=== PATIENT | female | born 1935 | race Caucasian/White ===

== ENCOUNTER 2016-02-27 15:48 | Observation (INO) | payer MEDICARE ==
[2016-02-27] MEDS ORDERED: RX INFO: IV CONTRAST WAS GIVEN 1 EACH MISC MISCELLANE PRN (16:13)
[2016-02-27] MEDS ORDERED: ACETAMINOPHEN IV (For NPO) 1,000 MG in SALINE 1 100ML.BAG IVPB STA (16:14)
[2016-02-27] MEDS ORDERED: SODIUM CHLORIDE 0.9% 1,000 ML IV STA (16:14)
[2016-02-27] MEDS ORDERED: SODIUM CHLORIDE 0.9% 500 ML IV STA (16:14)
[2016-02-27] MEDS ORDERED: LORazepam 2 MG/ML SYRINGE IV STA ×2 (16:14→18:36)
--- NOTE | 2016-02-27 16:25 | ED ---
General Adult HPI - General Chief complaint: Recheck/Abnormal Lab/Rx Stated complaint: SOB Time Seen by Provider: 02/27/16 15:58 Source: patient, family, RN notes reviewed Mode of arrival: EMS Limitations: no limitations - History of Present Illness Initial comments: Patient is a pleasant 81-year-old female presenting to the emergency department with complaints of rib discomfort and anxiety. Patient had a fall a week ago. Patient did fracture her jaw. Patient has been having rib discomfort since that time. Patient states she gets rib discomfort and anxious and short of breath intermittently since that time. Patient states right now her symptoms are not that bad. Patient did go to her primary care physician's office prior to arrival and found to be in SVT. Patient sent to emergency department. Patient reportedly did have computed tomography scan of her chest and abdomen done 1 week ago. - Related Data Home Medications Medication Instructions Recorded Confirmed Aspirin EC [Ecotrin] 81 mg PO HS 04/07/15 02/27/16 Metoprolol Succinate [Toprol XL] 50 mg PO DAILY 04/07/15 02/27/16 Sertraline [Zoloft] 100 mg PO HS 04/07/15 02/27/16 Zolpidem Tartrate [Ambien Cr] 12.5 mg PO HS 04/07/15 02/27/16 Lactobacillus Acidophilus 1 tab PO BID 11/03/15 02/27/16 [Acidophilus] Calcium Carbonate [Calcium] 600 mg PO BID 02/21/16 02/27/16 Levothyroxine Sodium [Synthroid] 125 mcg PO DAILY 02/21/16 02/27/16 Losartan [Cozaar] 50 mg PO BID 02/21/16 02/27/16 HYDROcodone/APAP 7.5-325MG [[place] 0.5 tab PO Q4H PRN 02/27/16 02/27/16 7.5-325] Penicillin V Potassium [Pen Vee K] 500 mg PO QID 02/27/16 02/27/16 Previous Rx's Medication Instructions Recorded ALPRAZolam [Xanax] 0.5 mg PO Q6H PRN #6 tablet 02/22/16 Allergies Allergy/AdvReac Type Severity Reaction Status Date / Time ceftriaxone sodium Allergy Itching Verified 02/27/16 16:16 [From Rocephin] hydromorphone HCl Allergy Dyspnea Verified 02/27/16 16:16 [From Dilaudid] latex Allergy RASH AND Verified 02/27/16 16:16 SWELLING levofloxacin [From Levaquin] Allergy red Verified 02/27/16 15:56 streaks in iv vein morphine Allergy Dyspnea Verified 02/27/16 16:16 codeine AdvReac Rapid Verified 02/27/16 16:16 Heart Rate Review of Systems ROS Statement: Those systems with pertinent positive or pertinent negative responses have been documented in the HPI. ROS Other: All systems not noted in ROS Statement are negative. Constitutional: Denies: fever Eyes: Denies: eye pain ENT: Denies: ear pain Respiratory: Reports: dyspnea Cardiovascular: Reports: chest pain Endocrine: Reports: fatigue Gastrointestinal: Reports: abdominal pain Genitourinary: Denies: dysuria Musculoskeletal: Denies: back pain Skin: Denies: rash Neurological: Denies: weakness Past Medical History Past Medical History: Cancer, Deep Vein Thrombosis (DVT), Hypertension, Osteoarthritis (OA), Thyroid Disorder Additional Past Medical History / Comment(s): colon cancer-1991 with chemotherapy, dvt lt leg 2012, VARICOSE VEINS, cervical spondylosis with myelopathy, osteoporosis, rosacea History of Any Multi-Drug Resistant Organisms: MRSA Date of last positivie culture/infection: 2011 MDRO Source:: TOE Past Surgical History: Bowel Resection, Cholecystectomy, Hysterectomy Additional Past Surgical History / Comment(s): rt rotator cuff repair 2 04/2014 , colonoscopy, pain clinic procedures, multiple colon resections including colostomy reversal Past Anesthesia/Blood Transfusion Reactions: No Reported Reaction Past Psychological History: No Psychological Hx Reported Smoking Status: Never smoker Past Alcohol Use History: Rare Past Drug Use History: None Reported - Past Family History Brother(s) Son(s) Family Medical History: Deep Vein Thrombosis (DVT) Additional Family Medical History / Comment(s): Patient has 4 sons and one has history of DVTs Daughter(s) Additional Family Medical History / Comment(s): Patient has one daughter that has Crohn's Sister(s) Family Medical History: Cancer Additional Family Medical History / Comment(s): She has 2 sisters and one has had breast cancer with metastatic disease and the second sister with with liver cancer. Father Family Medical History: Cancer Additional Family Medical History / Comment(s): Father at age 90 from inoperable bowel cancer Mother Family Medical History: Cancer Additional Family Medical History / Comment(s): Mother at age 81 from stomach cancer General Exam Limitations: no limitations General appearance: alert, in no apparent distress Head exam: Present: other (Chin abrasions, mandible tenderness) Eye exam: Present: normal appearance ENT exam: Present: normal oropharynx Neck exam: Present: normal inspection Respiratory exam: Present: normal lung sounds bilaterally, chest wall tenderness (Left posterior) Cardiovascular Exam: Present: tachycardia GI/Abdominal exam: Present: soft, tenderness (Right upper quadrant) Extremities exam: Present: normal inspection Back exam: Present: tenderness (Left posterior ribs) Neurological exam: Present: alert Psychiatric exam: Present: normal affect, normal mood Skin exam: Absent: rash Course Vital Signs 02/27/16 02/27/16 02/27/16 15:50 16:02 18:12 Temperature 97.8 F 98.4 F Pulse Rate 119 H 86 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 [place] 168. QRS 78. QT 332. QTC 479. Normal axis. Normal QRS. Normal ST-T. Medical Decision Making - Medical Decision Making Patient reexamined and resting comfortably in bed. Patient is complaining of left upper back/shoulder discomfort. There is mild tenderness to palpation in this region. This area was covered in computed tomography scan. Heart rate has improved to 80. Case was discussed in detail with Dr. Beltran, who will admit his patient with cardiology consult. - Lab Data Result diagrams: 02/27/16 16:25 02/27/16 16:25 Lab Results 02/27/16 02/27/16 02/27/16 Range/Units 16:25 16:25 16:25 WBC 4.7 (3.8-10.6) k/uL RBC 4.17 (3.80-5.40) m/uL Hgb 12.5 (11.4-16.0) gm/dL Hct 38.1 (34.0-46.0) % MCV 91.3 (80.0-100.0) fL MCH 30.0 (25.0-35.0) pg MCHC 32.9 (31.0-37.0) g/dL RDW 14.1 (11.5-15.5) % Plt Count 207 (150-450) k/uL Neutrophils % 67 % Lymphocytes % 16 % Monocytes % 11 % Eosinophils % 0 % Basophils % 1 % Neutrophils # 3.1 (1.3-7.7) k/uL Lymphocytes # 0.7 L (1.0-4.8) k/uL Monocytes # 0.5 (0-1.0) k/uL Eosinophils # 0.0 (0-0.7) k/uL Basophils # 0.1 (0-0.2) k/uL PT (9.0-12.0) sec INR (<1.1) APTT (22.0-30.0) sec Sodium 140 (137-145) mmol/L Potassium 4.6 (3.5-5.1) mmol/L Chloride 100 (98-107) mmol/L Carbon Dioxide 27 (22-30) mmol/L Anion Gap 13 mmol/L BUN 22 H (7-17) mg/dL Creatinine 0.80 (0.52-1.04) mg/dL Est GFR (MDRD) Af Amer >60 (>60 ml/min/1.73 sqM) Est GFR (MDRD) Non-Af >60 (>60 ml/min/1.73 sqM) Glucose 94 (74-99) mg/dL Calcium 9.6 (8.4-10.2) mg/dL Magnesium 2.1 (1.6-2.3) mg/dL Total Bilirubin 0.7 (0.2-1.3) mg/dL AST 40 H (14-36) U/L ALT 80 H (9-52) U/L Alkaline Phosphatase 113 (38-126) U/L Total Creatine Kinase 21 L (30-135) U/L CK-MB (CK-2) <0.2 (0.0-2.4) ng/mL CK-MB (CK-2) Rel Index Troponin I <0.012 (0.000-0.034) ng/mL Total Protein 6.6 (6.3-8.2) g/dL Albumin 4.0 (3.5-5.0) g/dL TSH 0.451 L (0.465-4.680) mIU/L Free T4 1.35 (0.78-2.19) ng/dL Free T3 pg/mL 2.6 L (2.8-5.3) pg/ml Urine Color Urine Appearance (Clear) Urine pH (5.0-8.0) Ur Specific [place] (1.001-1.035) Urine Protein (Negative) Urine Glucose (UA) (Negative) Urine Ketones (Negative) Urine Blood (Negative) Urine Nitrate (Negative) Urine Bilirubin (Negative) Urine Urobilinogen (<2.0) mg/dL Ur Leukocyte Esterase (Negative) 02/27/16 02/27/16 Range/Units 16:25 18:10 WBC (3.8-10.6) k/uL RBC (3.80-5.40) m/uL Hgb (11.4-16.0) gm/dL Hct (34.0-46.0) % MCV (80.0-100.0) fL MCH (25.0-35.0) pg MCHC (31.0-37.0) g/dL RDW (11.5-15.5) % Plt Count (150-450) k/uL Neutrophils % % Lymphocytes % % Monocytes % % Eosinophils % % Basophils % % Neutrophils # (1.3-7.7) k/uL Lymphocytes # (1.0-4.8) k/uL Monocytes # (0-1.0) k/uL Eosinophils # (0-0.7) k/uL Basophils # (0-0.2) k/uL PT 9.6 (9.0-12.0) sec INR 0.9 (<1.1) APTT 21.7 L (22.0-30.0) sec Sodium (137-145) mmol/L Potassium (3.5-5.1) mmol/L Chloride (98-107) mmol/L Carbon Dioxide (22-30) mmol/L Anion Gap mmol/L BUN (7-17) mg/dL Creatinine (0.52-1.04) mg/dL Est GFR (MDRD) Af Amer (>60 ml/min/1.73 sqM) Est GFR (MDRD) Non-Af (>60 ml/min/1.73 sqM) Glucose (74-99) mg/dL Calcium (8.4-10.2) mg/dL Magnesium (1.6-2.3) mg/dL Total Bilirubin (0.2-1.3) mg/dL AST (14-36) U/L ALT (9-52) U/L Alkaline Phosphatase (38-126) U/L Total Creatine Kinase (30-135) U/L CK-MB (CK-2) (0.0-2.4) ng/mL CK-MB (CK-2) Rel Index Troponin I (0.000-0.034) ng/mL Total Protein (6.3-8.2) g/dL Albumin (3.5-5.0) g/dL TSH (0.465-4.680) mIU/L Free T4 (0.78-2.19) ng/dL Free T3 pg/mL (2.8-5.3) pg/ml Urine Color Light Yellow Urine Appearance Clear (Clear) Urine pH 7.5 (5.0-8.0) Ur Specific [place] 1.023 (1.001-1.035) Urine Protein Negative (Negative) Urine Glucose (UA) Negative (Negative) Urine Ketones Negative (Negative) Urine Blood Negative (Negative) Urine Nitrate Negative (Negative) Urine Bilirubin Negative (Negative) Urine Urobilinogen <2.0 (<2.0) mg/dL Ur Leukocyte Esterase Negative (Negative) - Radiology Data Radiology results: report reviewed (CT and your of the chest shows no significant interval change. Negative for pulmonary embolism. Computed tomography scan of the abdomen and pelvis shows no significant interval change. Correlate for fecal stasis.), image reviewed (Chest x-ray shows suspected chronic pleural reaction.) Disposition Clinical Impression: SVT (supraventricular tachycardia) Disposition: ADMITTED IP TO THIS HOSP
[2016-02-27 16:37] LABS: Basophils # (A) 0.1 k/uL (0-0.2); Basophils % (A) 1 %; CH 31.6; CHCM 34.8; Eosinophils % (A) 0 %; HCT 38.1 % (34.0-46.0); HDW 2.83; HGB 12.5 gm/dL (11.4-16.0); Luc # (Auto) 0.21; Luc % (Auto) 5; Lymphocytes # (A) 0.7 k/uL (1.0-4.8); Lymphocytes % (A) 16 %; MCHC 32.9 g/dL (31.0-37.0); MCV 91.3 fL (80.0-100.0); Mean Platelet Volume 7.9; Monocytes # (A) 0.5 k/uL (0-1.0); Monocytes % (A) 11 %; Neutrophils # (A) 3.1 k/uL (1.3-7.7); Neutrophils % (A) 67 %; RBC 4.17 m/uL (3.80-5.40); RDW 14.1 % (11.5-15.5); WBC 4.7 k/uL (3.8-10.6); WBC (Perox) 4.78
[2016-02-27 16:52] LABS: INR 0.9 (<1.1); Partial Thromboplastin Time 21.7 sec (22.0-30.0); Prothrombin Time 9.6 sec (9.0-12.0)
[2016-02-27 17:04] LABS: Creatine Kinase 21 U/L (30-135)
[2016-02-27 17:13] LABS: ALT 80 U/L (9-52); AST 40 U/L (14-36); Alkaline Phosphatase 113 U/L (38-126); Anion Gap 13 mmol/L; Blood Urea Nitrogen 22 mg/dL (7-17); Calcium 9.6 mg/dL (8.4-10.2); Carbon Dioxide 27 mmol/L (22-30); Chloride 100 mmol/L (98-107); Glucose 94 mg/dL (74-99); Magnesium 2.1 mg/dL (1.6-2.3); Non-African American GFR(MDRD) >60 (>60 ml/min/1.73 sqM); Potassium 4.6 mmol/L (3.5-5.1); Sodium 140 mmol/L (137-145); Total Bilirubin 0.7 mg/dL (0.2-1.3); Total Protein 6.6 g/dL (6.3-8.2)
[2016-02-27 17:17] LABS: Creatine Kinase MB <0.2 ng/mL (0.0-2.4); Troponin I <0.012 ng/mL (0.000-0.034)
--- NOTE | 2016-02-27 17:28 | XR ---
EXAMINATION TYPE: XR chest 1V portable DATE OF EXAM: 02/27/2016 5:14 PM COMPARISON: Prior chest x-ray April HISTORY: Abnormal chest x-ray, dysrhythmia and shortness of breath TECHNIQUE: Single frontal view of the chest is obtained. FINDINGS: Similar findings. Blunting of the left costophrenic angle is likely chronic. No pneumothor ax. Postoperative change noted to the distal right clavicle. Bone mineralization is reduced. Patient is rotated and there are overlying cardiac leads, lung volumes are low. Cardiac mediastinal silhouett e, pulmonary vascularity and susan are stable. IMPRESSION: Suspect chronic pleural reaction
[2016-02-27 18:14] LABS: Appearance,Urine Clear (Clear); Bilirubin,Urine Negative (Negative); Glucose,Urine (UA) Negative (Negative); Ketones,Urine Negative (Negative); Leukocyte Esterase,Urine Negative (Negative); Nitrite,Urine Negative (Negative); PH, Urine 7.5 (5.0-8.0); Protein,Urine Negative (Negative); Specific Gravity,Urine 1.023 (1.001-1.035); UA Billing (MACRO vs. MICRO) CHEM; Urobilinogen,Urine <2.0 mg/dL (<2.0)
--- NOTE | 2016-02-27 18:38 | CT ---
EXAMINATION TYPE: CT angio chest, CT abdomen pelvis w con DATE OF EXAM: 02/27/2016 6:01 PM COMPARISON: CT scan chest abdomen and pelvis January HISTORY: Pt states of difficulty breathing and abdominal pain. CT DLP: 1792.0 (accession [id number]), 1792. (accession [id number]) mGycm Automated exposure control for dose reduction was used. CONTRAST: CTA scan of the thorax is performed with IV Contrast, patient injected with 100 mL of Omnipaque 350, pulmonary embolism protocol. MIP images are created and reviewed. 3D reconstructed images are creat ed on an independent workstation and reviewed. Helical acquisition through the abdomen and pelvis fol lowing intravenous contrast. FINDINGS: LUNGS: The lungs are showing basilar patchy increased density in the posterior costophrenic angles li khadra due to atelectasis rather than pneumonia., there is no concerning parenchymal mass or nodule chandu ntified. There is a lucent focus posterolaterally on axial image 22 compatible with a small tracheoc frantz. There is no pleural effusion or pneumothorax seen. The tracheobronchial tree is patent. AORTA: No additional significant abnormality is seen. 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 There are coronary mary kate ry calcifications. MEDIASTINUM: There is satisfactory enhancement of the pulmonary artery and its branches, there is no CT evidence for pulmonary embolism. There are no greater than 1 cm hilar or mediastinal lymph nodes. No pericardial effusion is seen. Upper abdomen: Abdomen shows postcholecystectomy change, prominence of the biliary ducts is likely p ostoperative. Liver is otherwise unremarkable. Spleen, adrenal glands, kidneys, and pancreas are unre markable. Suspect there is a duodenal diverticulum at the 2nd-3rd portion of the duodenum. Gastric wa ll thickening is nonspecific. Pelvis: Surgical clips present in the right lower quadrant, there is a pouch present the level of the distal ileum and cecum. Urinary bladder within normal limits. No free fluid or pelvic adenopathy. Re tained fecal debris present within the rectum, correlate to exclude fecal stasis, diverticular change s present. Surgical clips also present in the left hemiabdomen. Aorta is nonaneurysmal. Small umbilic al hernia contains fat. Increased attenuation at the inferior gluteal regions posteriorly may be due to ecchymosis. Degenerative disc changes in the visualized spine, there is a spinal curvature. IMPRESSION: NO SIGNIFICANT INTERVAL CHANGE COMPARED TO PRIOR EXAM 6 DAYS PRIOR. Correlate for possible fecal freddie is. Postop changes and additional findings above.
[2016-02-27] MEDS ORDERED: LORazepam 2 MG/ML SYRINGE IV PRN (19:42)
[2016-02-27] MEDS ORDERED: HYDROcodone/APAP 5-325MG 1 EACH TAB PO PRN (19:42)
[2016-02-27] MEDS ORDERED: NALOXONE 0.4 MG/ML 1 ML VIAL IV PRN (19:42)
[2016-02-27] MEDS: SODIUM CHLORIDE 0.9% 1,000 ML IV SCH (20:25)
[2016-02-27] MEDS ORDERED: PENICILLIN VK 500MG STARTER 4 TAB BTL PO SCH (23:30)
[2016-02-28] MEDS: LOSARTAN 50 MG TAB PO SCH ×3 (00:18→20:35)
[2016-02-28] MEDS: ASPIRIN 81 MG CHEW PO SCH ×2 (00:18→20:35)
[2016-02-28] MEDS: SERTRALINE 100 MG TAB PO SCH ×2 (00:18→20:35)
[2016-02-28] MEDS: ZOLPIDEM 10 MG TAB PO SCH ×2 (00:19→20:32)
[2016-02-28] MEDS: PENICILLIN V POTASSIUM 250 MG TAB PO SCH ×6 (00:19→22:30)
[2016-02-28] MEDS: ALPRAZolam 0.5 MG TAB PO PRN ×2 (00:19→08:30)
[2016-02-28] MEDS: CALCIUM CARBONATE 500 MG CHEWABLE PO SCH ×3 (00:25→20:35)
[2016-02-28] MEDS: HYDROcodone/APAP 7.5-325MG 1 EACH TAB PO PRN ×3 (02:35→20:32)
[2016-02-28] MEDS: ONDANSETRON 4 MG/2 ML VIAL IVP PRN (08:24)
[2016-02-28] MEDS: LEVOTHYROXINE 125 MCG TAB PO SCH (08:34)
[2016-02-28] MEDS: METOPROLOL SUCCINATE (ER) 50 MG TAB.ER.24H PO SCH (08:37)
[2016-02-28] MEDS: SENNOSIDES-DOCUSATE SODIUM 1 EACH TAB PO SCH ×2 (08:39→20:39)
[2016-02-28] MEDS: SODIUM CHLORIDE 0.9% 1,000 ML IV SCH (08:39)
--- NOTE | 2016-02-28 11:12 | P.CRDCN ---
History of Present Illness Consult date: 02/28/16 Requesting physician: Damir Beltran Reason for Consult (text): SVT Chief complaint: Recent fall History of present illness: This is a pleasant 81-year-old female with history of hypertension, hypothyroidism, colon cancer with prior bowel resection, who had a fall as an outpatient on Friday, according to the patient there was some uneven pavement , she tripped and fell hitting her face onto the pavement, she did incur a fracture to her jaw. Patient also experiences significant pain in her bilateral ribs. She went to see the oral surgeon yesterday, he explained to her that she may need to have her jaw wired shut if it does not heal appropriately, at that time she became extremely anxious. She then followed up with in the office, continued to be very anxious and upset, and EKG was performed, patient was found to be in a supraventricular tachycardia hence the EMS was called and patient was brought here for further evaluation. EKG performed on arrival here showed a sinus tachycardia, EKG performed at Dr. Beltran 's office showed a supraventricular tachycardia with a heart rate of 157. EMS EKG shows a sinus tachycardia. CTA of the chest was performed which did not reveal any significant interval changes compared with prior exams 6 days earlier. No evidence of PE. Asked x-ray reveals chronic pleural reaction. Operatory data was reviewed, WBC 4.7, hemoglobin 12.5. Potassium 4.6, BUN 22, creatinine 0.8. AST 40, ALT 80. Troponin negative. TSH 0.45, free T4 1.35, free T3 2.6. Blood pressure 114/56, heart rate in the 80s currently, 96% on room air. At the time of my examination this morning, patient is currently in a normal sinus rhythm. Complains of mild discomfort and bilateral rib area, anxious. Past Medical History Past Medical History: Cancer, Deep Vein Thrombosis (DVT), Hypertension, Osteoarthritis (OA), Thyroid Disorder Additional Past Medical History / Comment(s): colon cancer-1991 with chemotherapy, dvt lt leg 2012, VARICOSE VEINS, cervical spondylosis with myelopathy, osteoporosis, rosacea History of Any Multi-Drug Resistant Organisms: MRSA Date of last positivie culture/infection: 2011 MDRO Source:: TOE Past Surgical History: Bowel Resection, Cholecystectomy, Hysterectomy Additional Past Surgical History / Comment(s): rt rotator cuff repair 2 04/2014 , colonoscopy, pain clinic procedures, multiple colon resections including colostomy reversal Past Anesthesia/Blood Transfusion Reactions: No Reported Reaction Past Psychological History: Anxiety Smoking Status: Never smoker Past Alcohol Use History: Rare Past Drug Use History: None Reported - Past Family History Brother(s) Son(s) Family Medical History: Deep Vein Thrombosis (DVT) Additional Family Medical History / Comment(s): Patient has 4 sons and one has history of DVTs Daughter(s) Additional Family Medical History / Comment(s): Patient has one daughter that has Crohn's Sister(s) Family Medical History: Cancer Additional Family Medical History / Comment(s): She has 2 sisters and one has had breast cancer with metastatic disease and the second sister with with liver cancer. Father Family Medical History: Cancer Additional Family Medical History / Comment(s): Father at age 90 from inoperable bowel cancer Mother Family Medical History: Cancer Additional Family Medical History / Comment(s): Mother at age 81 from stomach cancer Medications and Allergies Home Medications Medication Instructions Recorded Confirmed Type Aspirin EC [Ecotrin] 81 mg PO HS 04/07/15 02/27/16 History Metoprolol Succinate [Toprol XL] 50 mg PO DAILY 04/07/15 02/27/16 History Sertraline [Zoloft] 100 mg PO HS 04/07/15 02/27/16 History Zolpidem Tartrate [Ambien Cr] 12.5 mg PO HS 04/07/15 02/27/16 History Lactobacillus Acidophilus 1 tab PO BID 11/03/15 02/27/16 History [Acidophilus] Calcium Carbonate [Calcium] 600 mg PO BID 02/21/16 02/27/16 History Levothyroxine Sodium [Synthroid] 125 mcg PO DAILY 02/21/16 02/27/16 History Losartan [Cozaar] 50 mg PO BID 02/21/16 02/27/16 History HYDROcodone/APAP 7.5-325MG [[place] 0.5 tab PO Q4H PRN 02/27/16 02/27/16 History 7.5-325] Penicillin V Potassium [Pen Vee K] 500 mg PO QID 02/27/16 02/27/16 History Allergies Allergy/AdvReac Type Severity Reaction Status Date / Time ceftriaxone sodium Allergy Itching Verified 02/27/16 16:16 [From Rocephin] hydromorphone HCl Allergy Dyspnea Verified 02/27/16 16:16 [From Dilaudid] latex Allergy RASH AND Verified 02/27/16 16:16 SWELLING levofloxacin [From Levaquin] Allergy red Verified 02/27/16 15:56 streaks in iv vein morphine Allergy Dyspnea Verified 02/27/16 16:16 codeine AdvReac Rapid Verified 02/27/16 16:16 Heart Rate Physical Exam Vitals: Vital Signs Temp Pulse Pulse Resp BP BP Pulse Ox 02/28/16 04:00 98.1 F 89 16 115/55 96 02/28/16 00:00 98.3 F 69 16 140/61 100 02/27/16 20:26 98.0 F 93 86 16 111/53 123/75 99 Intake and Output 02/27/16 02/28/16 02/28/16 22:59 06:59 14:59 Intake Total 0 Output Total 200 175 Balance -200 -175 0 Intake: Oral 0 Output: Urine 200 175 Other: Voiding Method Toilet Weight 56.699 kg 59.5 kg PHYSICAL EXAMINATION: HEENT: Head is atraumatic, normocephalic. Ecchymosis noted around the jaw area. Pupils equal, round. Neck is supple. There is no elevated jugular venous pressure. HEART EXAMINATION: Heart S1, S2 normal. No murmur or gallop heard. CHEST EXAMINATION: Lungs are clear to auscultation and precussion. No chest wall tenderness is noted on palpation or with deep breathing. Positive tenderness of bilateral rib areas. ABDOMEN: Soft, nontender. Bowel sounds are heard. No organomegaly noted. EXTREMITIES: 2+ peripheral pulses with no evidence of peripheral edema and no calf tenderness noted. NEUROLOGIC patient is awake, alert and oriented -3. . Results 02/27/16 16:25 02/27/16 16:25 Current Medications Generic Name Dose Route Start Last Admin Trade Name Freq PRN Reason Stop Dose Admin Acetaminophen/Hydrocodone Bitart 0.5 each 02/27/16 23:23 02/28/16 02:35 [place] 7.5-325 PO 0.5 each Q4H PRN Administration Pain Alprazolam 0.5 mg 02/27/16 23:23 02/28/16 08:30 Xanax PO 0.5 mg Q6H PRN Administration Anxiety Aspirin 81 mg 02/27/16 23:30 02/28/16 00:18 Aspirin PO 81 mg HS FABIOLA Administration Calcium Carbonate/Glycine 500 mg 02/27/16 23:30 02/28/16 08:34 Tums PO 500 mg BID FABIOLA Administration Sodium Chloride 1,000 mls @ 75 mls/hr 02/27/16 19:45 02/28/16 08:39 Saline 0.9% IV 75 mls/hr .[id number] FABIOLA Administration Ibuprofen 600 mg 02/27/16 23:27 Motrin PO Q6HR PRN Inflammation Levothyroxine Sodium 125 mcg 02/28/16 09:00 02/28/16 08:34 Synthroid PO 125 mcg DAILY FABIOLA Administration Lorazepam 0.5 mg 02/27/16 19:42 Ativan IV Q6HR PRN Anxiety Losartan Potassium 50 mg 02/27/16 23:30 02/28/16 08:35 Cozaar PO 50 mg BID FABIOLA Administration Metoprolol Succinate 50 mg 02/28/16 09:00 02/28/16 08:37 Toprol Xl PO 50 mg DAILY FABIOLA Administration Miscellaneous Information 1 each 02/27/16 16:13 Rx Info: Iv Contrast Was Given MISCELLANE 02/29/16 16:13 DAILY PRN Per Protocol Naloxone HCl 0.2 mg 02/27/16 19:42 Narcan IV Q2M PRN Opioid Reversal Ondansetron HCl 4 mg 02/27/16 19:42 02/28/16 08:24 Zofran IVP 4 mg Q8HR PRN Administration Nausea And Vomiting Penicillin V Potassium 500 mg 02/27/16 23:45 02/28/16 08:37 Pen Vee K PO 500 mg QID FABIOLA Administration Senna/Docusate Sodium 2 each 02/28/16 09:00 02/28/16 08:39 Senokot-S PO 2 each BID FABIOLA Administration Sertraline HCl 100 mg 02/27/16 23:30 02/28/16 00:18 Zoloft PO 100 mg HS FABIOLA Administration Zolpidem Tartrate 10 mg 02/27/16 23:30 02/28/16 00:19 Ambien PO 10 mg HS FABIOLA Administration Intake and Output 02/27/16 02/28/16 02/28/16 22:59 06:59 14:59 Intake Total 0 Output Total 200 175 Balance -200 -175 0 Intake: Oral 0 Output: Urine 200 175 Other: Voiding Method Toilet Weight 56.699 kg 59.5 kg Assessment and Plan Plan: Assessment and plan #1 supraventricular tachycardia, patient currently in normal sinus rhythm. #2 recent fall with evidence of bilateral jaw fracture #3 hypertension #4 hypothyroidism, on Synthroid, TSH 0.451, free T4 1.3, free T3 2.6 #5 history of bowel cancer status post bowel resection #6 history of prior DVT Plan Will obtain an echocardiogram with Doppler study. Continue Toprol 50 mg daily. DNP note has been reviewed, I agree with a documented findings and plan of care. Patient was seen and examined.
--- NOTE | 2016-02-28 12:59 | ECHOF ---
Referral Reason:svt MEASUREMENTS -------- HEIGHT: 167.6 cm WEIGHT: 59.4 kg BP: 142/84 RVIDd: 2.9 cm (< 3.3) IVSd: 0.8 cm (0.6 - 1.1) LVIDd: 4.4 cm (3.9 - 5.3) LVPWd: 0.7 cm (0.6 - 1.1) IVSs: 1.3 cm LVIDs: 2.8 cm LVPWs: 1.6 cm LA Diam: 3.3 cm (2.7 - 3.8) LAESV Index (A-L): 15.44 ml/m Ao Diam: 3.1 cm (2.0 - 3.7) AV Cusp: 1.9 cm (1.5 - 2.6) MV EXCURSION: 11.106 mm (> 18.000) MV EF SLOPE: 32 mm/s (70 - 150) EPSS: 0.7 cm MV E Gilberto: 0.90 m/s MV DecT: 274 ms MV A Gilberto: 1.05 m/s MV E/A Ratio: 0.85 AR PHT: 550 ms RAP: 5.00 mmHg RVSP: 25.99 mmHg FINDINGS -------- Sinus rhythm. This was a technically adequate study. The left ventricular size is normal. Left ventricular wall thickness is normal. Overall left ventricular systolic function is normal with, an EF between 60 - 65 %. The right ventricle is normal in size and function. The left atrium is normal in size. Normal LA size by volume 22+/-6 ml/m2. The right atrium is normal in size. The aortic valve is trileaflet and appears structurally normal. There is mild aortic regurgitation. The mitral valve leaflets are mildly thickened. Mild mitral annular calcification present. Mild mitral regurgitation is present. Mild tricuspid regurgitation present. Right ventricular systolic pressure is normal at < 35 mmHg. The pulmonic valve was not well visualized. The aortic root size is normal. Normal inferior vena cava with normal inspiratory collapse consistent with estimated right atrial pressure of 5 mmHg. There is no pericardial effusion. CONCLUSIONS -------- 1. Sinus rhythm. 2. The mitral valve leaflets are mildly thickened. 3. Mild mitral annular calcification present. 4. Mild mitral regurgitation is present. 5. Mild tricuspid regurgitation present. 6. Right ventricular systolic pressure is normal at < 35 mmHg. 7. The pulmonic valve was not well visualized. 8. The aortic root size is normal. 9. Normal inferior vena cava with normal inspiratory collapse consistent with estimated right atrial pressure of 5 mmHg. 10. There is no pericardial effusion. 11. This was a technically adequate study. 12. The left ventricular size is normal. 13. Left ventricular wall thickness is normal. 14. Overall left ventricular systolic function is normal with, an EF between 60 - 65 %. 15. The right ventricle is normal in size and function. 16. Normal LA size by volume 22+/-6 ml/m2. 17. The aortic valve is trileaflet and appears structurally normal. 18. There is mild aortic regurgitation. DIRECTOR EXTERNAL COMMUNICATIONS: Ludivina Urban RDCS
--- NOTE | 2016-02-28 13:38 | P.HPIM ---
History of Present Illness H&P Date: 02/28/16 Chief Complaint: SVT This is an 81-year-old female. She is a patient of Dr. Guillen. She has a past medical history for hypertension, hypertensive cardiovascular disease , hypothyroidism, cervical spondylosis with myelopathy, osteoporosis, rosacea, recurrent depression, colon cancer diagnosed in 1991 status post 4-5 bowel resections and reversal of colostomy. Her last colonoscopy with Dr. Guajardo at [facility] in January 2015 showed no cancer. 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 She gives history that last Friday she fell on the sidewalk onto her face and up coming into the hospital by EMS and was found to have a jaw fracture and was subsequently discharged home. She did follow-up with Dr. Stoddard the following morning and the left upper tooth was extracted and she was placed on penicillin, [place] and Xanax. She apparently had a repeat visit with Dr. Stoddard yesterday and he discussed wanting to wire her jaw for which the patient is not happy about. She then followed up with Dr. Beltran in the afternoon and she was found to have SVT and was sent directly to [facility] emergency center for evaluation. On presentation her heart rate was running 120 -125 and a sinus tachycardia. She was also complaining of rib discomfort across the anterior lower ribs, shortness of breath and anxiety. Patient states she has been very anxious because Dr. Stoddard had talked about wearing her jaw.. Her TSH was 0.451 and free T4 1 0.35. Initial troponin was negative. AST 40, ALT 80, alkaline phosphatase 1:15. Urinalysis was negative for urinary tract infection and culture is in progress. She underwent a CTA of the chest which was negative for pulmonary embolism. CAT scan of the abdomen and pelvis recommended correlation for fecal stasis. Chest x-ray with suspected chronic pleural reaction area and patient was given Ativan 1 mg IV push 2 in the emergency center and was then placed on the selective care unit where cardiology consult was requested. Cardiology recommended continuing Toprol 50 mg daily. Echocardiogram reveals mild mitral regurgitation, mild tricuspid regurgitation, EF 60-65%, mild aortic regurgitation. Patient is currently in a sinus rhythm running 69-89. Patient also states that since she has been on pain medication for at the jaw fracture which has Caused constipation and she is normally having diarrhea due to her short bowel syndrome. She states her abdomen is so sore she cannot get up. Patient received Senokot-S 2 tablets this morning and has had diarrhea at least 6 times. C. difficile toxin has been requested. Review of Systems All systems: negative Constitutional: Denies chills, Denies fever Eyes: denies blurred vision, denies pain Ears, nose, mouth and throat: Reports mouth pain, Denies headache, Denies sore throat Cardiovascular: Reports chest pain, Reports shortness of breath, Denies edema, Denies irregular heart beat, Denies leg edema, Denies lightheadedness, Denies palpitations, Denies syncope Respiratory: Denies cough, Denies cough with sputum, Denies home oxygen Gastrointestinal: Reports diarrhea, Denies abdominal pain, Denies nausea, Denies vomiting Genitourinary: Denies dysuria, Denies hematuria, Denies urgency, Denies urinary frequency Musculoskeletal: Denies myalgias Integumentary: Denies pruritus, Denies rash Neurological: Denies numbness, Denies weakness Psychiatric: Reports anxiety, Denies depression Endocrine: Denies fatigue, Denies weight change Past Medical History Past Medical History: Cancer, Deep Vein Thrombosis (DVT), Hypertension, Osteoarthritis (OA), Thyroid Disorder Additional Past Medical History / Comment(s): colon cancer-1991 with chemotherapy, dvt lt leg 2012, VARICOSE VEINS, cervical spondylosis with myelopathy, osteoporosis, rosacea History of Any Multi-Drug Resistant Organisms: MRSA Date of last positivie culture/infection: 2011 MDRO Source:: TOE Past Surgical History: Bowel Resection, Cholecystectomy, Hysterectomy Additional Past Surgical History / Comment(s): rt rotator cuff repair 2 04/2014 , colonoscopy, pain clinic procedures, multiple colon resections including colostomy reversal Past Anesthesia/Blood Transfusion Reactions: No Reported Reaction Past Psychological History: Anxiety Smoking Status: Never smoker Past Alcohol Use History: Rare Past Drug Use History: None Reported - Past Family History Brother(s) Son(s) Family Medical History: Deep Vein Thrombosis (DVT) Additional Family Medical History / Comment(s): Patient has 4 sons and one has history of DVTs Daughter(s) Additional Family Medical History / Comment(s): Patient has one daughter that has Crohn's Sister(s) Family Medical History: Cancer Additional Family Medical History / Comment(s): She has 2 sisters and one has had breast cancer with metastatic disease and the second sister with with liver cancer. Father Family Medical History: Cancer Additional Family Medical History / Comment(s): Father at age 90 from inoperable bowel cancer Mother Family Medical History: Cancer Additional Family Medical History / Comment(s): Mother at age 81 from stomach cancer Medications and Allergies Home Medications Medication Instructions Recorded Confirmed Type Aspirin EC [Ecotrin] 81 mg PO HS 04/07/15 02/27/16 History Metoprolol Succinate [Toprol XL] 50 mg PO DAILY 04/07/15 02/27/16 History Sertraline [Zoloft] 100 mg PO HS 04/07/15 02/27/16 History Zolpidem Tartrate [Ambien Cr] 12.5 mg PO HS 04/07/15 02/27/16 History Lactobacillus Acidophilus 1 tab PO BID 11/03/15 02/27/16 History [Acidophilus] Calcium Carbonate [Calcium] 600 mg PO BID 02/21/16 02/27/16 History Levothyroxine Sodium [Synthroid] 125 mcg PO DAILY 02/21/16 02/27/16 History Losartan [Cozaar] 50 mg PO BID 02/21/16 02/27/16 History HYDROcodone/APAP 7.5-325MG [[place] 0.5 tab PO Q4H PRN 02/27/16 02/27/16 History 7.5-325] Penicillin V Potassium [Pen Vee K] 500 mg PO QID 02/27/16 02/27/16 History Allergies Allergy/AdvReac Type Severity Reaction Status Date / Time ceftriaxone sodium Allergy Itching Verified 02/27/16 16:16 [From Rocephin] hydromorphone HCl Allergy Dyspnea Verified 02/27/16 16:16 [From Dilaudid] latex Allergy RASH AND Verified 02/27/16 16:16 SWELLING levofloxacin [From Levaquin] Allergy red Verified 02/27/16 15:56 streaks in iv vein morphine Allergy Dyspnea Verified 02/27/16 16:16 codeine AdvReac Rapid Verified 02/27/16 16:16 Heart Rate Physical Exam Vitals: Vital Signs Temp Pulse Pulse Resp BP BP Pulse Ox 02/28/16 08:00 98.9 F 82 19 142/84 99 02/28/16 04:00 98.1 F 89 16 115/55 96 02/28/16 00:00 98.3 F 69 16 140/61 100 02/27/16 20:26 98.0 F 93 86 16 111/53 123/75 99 Intake and Output 02/27/16 02/28/16 02/28/16 22:59 06:59 14:59 Intake Total 0 Output Total 200 175 Balance -200 -175 0 Intake: Oral 0 Output: Urine 200 175 Other: Voiding Method Toilet Toilet Weight 56.699 kg 59.5 kg Gen: This is an 81-year-old female. She is in bed and appears to be in no acute distress. HEENT: Head is normocephalic. Ecchymosis noted on the right side of her face and jaw area. Pupils equal, round. Sclerae is anicteric. Mucous membranes of the mouth are somewhat dry. NECK: Supple. No JVD. No lymphadenopathy. No thyromegaly. LUNGS: Clear to auscultation. No wheezes or rhonchi. No intercostal retractions. HEART: Regular rate and rhythm. No murmur. ABDOMEN: Soft. Bowel sounds are present. No masses. Mild generalized tenderness. EXTREMITIES: No pedal edema. No calf tenderness. Dorsalis pedis is +2 bilaterally. NEUROLOGICAL: Patient is awake, alert and oriented x3. Cranial nerves 2 through 12 are grossly intact. Results CBC & Chem 7: 02/27/16 16:25 02/27/16 16:25 Thrombosis Risk Factor Assmnt - DVT/VTE Prophylaxis DVT/VTE Prophylaxis: Mechanical Prophylaxis ordered - Choose All That Apply Any of the Below Risk Factors Present?: Yes Each Factor Represents 1 point: Varicose veins Other Risk Factors: No Other congenital or acquired thrombophilia - If yes, enter type in comment: No Thrombosis Risk Factor Assessment Total Risk Factor Score: 1 Thrombosis Risk Factor Assessment Level: Low Risk Assessment and Plan Plan: 1. Supraventricular tachycardia, now in sinus rhythm, most likely component of anxiety along with pain control issues. Continue Toprol-XL 50 mg daily. Cardiology consult appreciated. 2. Recent fall with traumatic injury with contusions to the ribs. Continue Inavale as needed. Incentive spirometry added to reduce incidence of atelectasis and hospital-acquired pneumonia. PT and OT evaluations requested. 3. Diarrhea following Senokot with history of constipation due to Inav[place] and recent use of antibiotics. C. difficile toxin to be checked. 4. Recent fall with jaw fracture status post tooth extraction and possible plan for wiring under the care of Dr. rojas. Patient has been on penicillin and [place]av[place], to be continued. 5. History of bowel cancer status post multiple surgeries including colostomy and colostomy reversal, stable. 6. Hypothyroidism. Continue Synthroid 125 g daily. 7. Hypertension hypertensive cardio vascular disease. Continue Cozaar 50 mg twice daily and Toprol-XL 50 mg daily. 6. History of DVT in 2012 without recurrence. 7. Cervical myelopathy chronic and stable. 8. Gastrointestinal prophylaxis. Continue Protonix. 9. DVT prophylaxis heparin subcu. 10. Admit patient for minimum of 2 night stay. 11. Discharge plan: Home. Impression and plan of care have been directed as dictated by the signing physician. Thi Brooks nurse practitioner acting as scribe for signing physician. Time with Patient: Greater than 30
[2016-02-28 14:06] VITALS: BMI 21.2
[2016-02-28] MEDS: HEPARIN SODIUM,PORCINE 5,000 UNIT/ML 1 ML VIAL SQ SCH (14:30)
[2016-02-29] MEDS: HEPARIN SODIUM,PORCINE 5,000 UNIT/ML 1 ML VIAL SQ SCH ×4 (00:43→20:23)
[2016-02-29] MEDS: ONDANSETRON 4 MG/2 ML VIAL IVP PRN ×2 (03:31→09:44)
[2016-02-29] MEDS: ALPRAZolam 0.5 MG TAB PO PRN ×2 (05:19→21:46)
[2016-02-29] MEDS: SODIUM CHLORIDE 0.9% 1,000 ML IV SCH ×2 (06:15→11:20)
[2016-02-29] MEDS: PANTOPRAZOLE 40 MG TABLET PO SCH (06:15)
[2016-02-29 06:41] LABS: CHCM 33.7; HDW 2.84; HGB 10.7 gm/dL (11.4-16.0); MCH 30.2 pg (25.0-35.0); MCHC 32.6 g/dL (31.0-37.0); MCV 92.6 fL (80.0-100.0); RBC 3.56 m/uL (3.80-5.40); RDW 14.1 % (11.5-15.5)
[2016-02-29 07:01] LABS: ALT 68 U/L (9-52); AST 38 U/L (14-36); Alkaline Phosphatase 110 U/L (38-126); Anion Gap 12 mmol/L; Blood Urea Nitrogen 17 mg/dL (7-17); Calcium 9.2 mg/dL (8.4-10.2); Carbon Dioxide 25 mmol/L (22-30); Chloride 106 mmol/L (98-107); Glucose 93 mg/dL (74-99); Non-African American GFR(MDRD) >60 (>60 ml/min/1.73 sqM); Potassium 3.9 mmol/L (3.5-5.1); Sodium 143 mmol/L (137-145); Total Bilirubin 0.7 mg/dL (0.2-1.3); Total Protein 6.2 g/dL (6.3-8.2)
[2016-02-29] MEDS: SENNOSIDES-DOCUSATE SODIUM 1 EACH TAB PO SCH ×2 (11:18→20:15)
[2016-02-29] MEDS: PENICILLIN V POTASSIUM 250 MG TAB PO SCH ×2 (11:18→12:07)
[2016-02-29] MEDS: CALCIUM CARBONATE 500 MG CHEWABLE PO SCH ×3 (11:19→20:15)
[2016-02-29] MEDS: LEVOTHYROXINE 125 MCG TAB PO SCH (11:19)
[2016-02-29] MEDS: METOPROLOL SUCCINATE (ER) 50 MG TAB.ER.24H PO SCH (11:20)
[2016-02-29] MEDS: LOSARTAN 50 MG TAB PO SCH ×2 (11:20→20:16)
[2016-02-29] MEDS: LOPERAMIDE 2 MG CAP PO PRN ×2 (12:32→21:43)
--- NOTE | 2016-02-29 12:50 | P.DS ---
Providers Date of admission: 02/27/16 19:43 Expected date of discharge: 02/29/16 Attending physician: Damir Beltran Primary care physician: Damir Beltran [facility] Course: This is an 81-year-old female. She is a patient of Dr. Beltran's. She has a past medical history for hypertension, hypertensive cardiovascular disease , hypothyroidism, cervical spondylosis with myelopathy, osteoporosis, rosacea, recurrent depression, colon cancer diagnosed in 1991 status post 4-5 bowel resections and reversal of colostomy. Her last colonoscopy with Dr. Guajardo at [facility] in January 2015 showed no cancer. 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 She gives history that last Friday she fell on the sidewalk onto her face and up coming into the hospital by EMS and was found to have a jaw fracture and was subsequently discharged home. She did follow-up with Dr. Stoddard the following morning and the left upper tooth was extracted and she was placed on penicillin, [place] and Xanax. She apparently had a repeat visit with Dr. Stoddard yesterday and he discussed wanting to wire her jaw for which the patient is not happy about. She then followed up with Dr. Beltran in the afternoon and she was found to have SVT and was sent directly to [facility] emergency center for evaluation. On presentation her heart rate was running 120 -125 and a sinus tachycardia. She was also complaining of rib discomfort across the anterior lower ribs, shortness of breath and anxiety. Patient states she has been very anxious because Dr. Stoddard had talked about wearing her jaw.. Her TSH was 0.451 and free T4 1 0.35. Initial troponin was negative. AST 40, ALT 80, alkaline phosphatase 1:15. Urinalysis was negative for urinary tract infection and culture is in progress. She underwent a CTA of the chest which was negative for pulmonary embolism. CAT scan of the abdomen and pelvis recommended correlation for fecal stasis. Chest x-ray with suspected chronic pleural reaction area and patient was given Ativan 1 mg IV push 2 in the emergency center and was then placed on the selective care unit where cardiology consult was requested. Cardiology recommended continuing Toprol 50 mg daily. Echocardiogram reveals mild mitral regurgitation, mild tricuspid regurgitation, EF 60-65%, mild aortic regurgitation. Patient is currently in a sinus rhythm running 69-89. Patient also states that since she has been on pain medication for at the jaw fracture which has Caused constipation and she is normally having diarrhea due to her short bowel syndrome. She states her abdomen is so sore she cannot get up. Patient received Senokot-S 2 tablets this morning and has had diarrhea at least 6 times. C. difficile toxin has been requested which was negative. 02/28: Patient did not participate with physical therapy yesterday. Physical therapy has evaluated this morning he recommends home care.. She also continues to have diarrhea which is worse than her normal loose stools. Imodium will be given one prior to discharge. Patient has been instructed to stop taking antibiotic at this point. She does continue to have lower rib pain bilaterally. No further input from cardiology. She will be discharged home today in stable condition. Discharge Diagnoses: 1. Supraventricular tachycardia, now in sinus rhythm, most likely component of anxiety along with pain control issues. 2. Recent fall with traumatic injury with contusions to the ribs. 3. Diarrhea following Senokot with history of constipation due to [place] and recent use of antibiotics. C. difficile toxin 4. Recent fall with jaw fracture status post tooth extraction and possible plan for wiring under the care of Dr. Stoddard. 5. History of bowel cancer status post multiple surgeries including colostomy and colostomy reversal, stable. 6. Hypothyroidism. 7. Hypertension hypertensive cardio vascular disease. 6. History of DVT in 2012 without recurrence. 7. Cervical myelopathy chronic and stable. Discharge plan: Home with home care. Impression and plan of care have been directed as dictated by the signing physician. Thi Brooks nurse practitioner acting as scribe for signing physician. Patient Condition at Discharge: Good Plan - Discharge Summary New Discharge Prescriptions: Loperamide [Imodium] 2 mg PO QID #30 capsule Discharge Medication List Aspirin EC [Ecotrin] 81 mg PO HS 04/07/15 [History] Metoprolol Succinate [Toprol XL] 50 mg PO DAILY 04/07/15 [History] Sertraline [Zoloft] 100 mg PO HS 04/07/15 [History] Zolpidem Tartrate [Ambien Cr] 12.5 mg PO HS 04/07/15 [History] Lactobacillus Acidophilus [Acidophilus] 1 tab PO BID 11/03/15 [History] Calcium Carbonate [Calcium] 600 mg PO BID 02/21/16 [History] Levothyroxine Sodium [Synthroid] 125 mcg PO DAILY 02/21/16 [History] Losartan [Cozaar] 50 mg PO BID 02/21/16 [History] ALPRAZolam [Xanax] 0.5 mg PO Q6H PRN #6 tablet 02/22/16 [Rx] HYDROcodone/APAP 7.5-325MG [[place] 7.5-325] 0.5 tab PO Q4H PRN 02/27/16 [History] Loperamide [Imodium] 2 mg PO QID #30 capsule 02/29/16 [Rx] Follow up Appointment(s)/Referral(s): Damir Beltran MD [Primary Care Provider] - 1 Week (please call when office is open to make follow up appointment) Discharge Disposition: HOME SELF-CARE
--- NOTE | 2016-02-29 15:47 | P.PN ---
Subjective Principal diagnosis: SVT This is a pleasant 81-year-old female with history of hypertension, hypothyroidism, colon cancer with prior bowel resection, who had a fall as an outpatient on Friday, according to the patient there was some uneven pavement , she tripped and fell hitting her face onto the pavement, she did incur a fracture to her jaw. Patient also experiences significant pain in her bilateral ribs. She went to see the oral surgeon yesterday, he explained to her that she may need to have her jaw wired shut if it does not heal appropriately, at that time she became extremely anxious. She then followed up with in the office, continued to be very anxious and upset, and EKG was performed, patient was found to be in a supraventricular tachycardia hence the EMS was called and patient was brought here for further evaluation. Since the patient's arrival here, she has had no further episodes of supraventricular tachycardia. Remains in a normal sinus rhythm. Echocardiogram with Doppler study was performed which revealed an ejection fraction of 60-65%. Objective - Vital Signs Vital signs: Vital Signs Temp 98.9 F 02/29/16 11:10 Pulse 121 H 02/29/16 11:10 Resp 18 02/29/16 11:10 BP 127/74 02/29/16 11:10 Pulse Ox 96 02/29/16 11:10 Intake & Output 02/28/16 02/29/16 02/29/16 18:59 06:59 18:59 Intake Total 195 Output Total 200 Balance -5 Weight 59.5 kg 58.6 kg Intake: Intake, IV Titration 75 Amount Sodium Chloride 0.9% 1, 75 000 ml @ 75 mls/hr IV . [id number] [facility] Rx#:[id number] Oral 120 Output: Urine 200 Other: Voiding Method Toilet Toilet # Voids 1 # Bowel Movements 2 3 - Exam PHYSICAL EXAMINATION: HEENT: Head is atraumatic, normocephalic. Ecchymosis noted around the jaw area. Pupils equal, round. Neck is supple. There is no elevated jugular venous pressure. HEART EXAMINATION: Heart S1, S2 normal. No murmur or gallop heard. CHEST EXAMINATION: Lungs are clear to auscultation and precussion. No chest wall tenderness is noted on palpation or with deep breathing. Positive tenderness of bilateral rib areas. ABDOMEN: Soft, nontender. Bowel sounds are heard. No organomegaly noted. EXTREMITIES: 2+ peripheral pulses with no evidence of peripheral edema and no calf tenderness noted. NEUROLOGIC patient is awake, alert and oriented -3. - Labs CBC & Chem 7: 02/29/16 06:12 02/29/16 06:12 Labs: Abnormal Lab Results - Last 24 Hours (Table) 02/29/16 02/29/16 Range/Units 06:12 06:12 RBC 3.56 L (3.80-5.40) m/uL Hgb 10.7 L (11.4-16.0) gm/dL Hct 33.0 L (34.0-46.0) % AST 38 H (14-36) U/L ALT 68 H (9-52) U/L Total Protein 6.2 L (6.3-8.2) g/dL Assessment and Plan Plan: Assessment and plan #1 supraventricular tachycardia, patient currently in normal sinus rhythm. #2 recent fall with evidence of bilateral jaw fracture #3 hypertension #4 hypothyroidism, on Synthroid, TSH 0.451, free T4 1.3, free T3 2.6 #5 history of bowel cancer status post bowel resection #6 history of prior DVT Plan From cardiology's perspective, patient may be able to be discharged home once cleared by the primary. We will make a follow-up appointment in the office post discharge. DNP note has been reviewed, I agree with a documented findings and plan of care. Patient was seen and examined.
[2016-02-29] MEDS: IBUPROFEN 600 MG TAB PO PRN ×2 (16:03→21:46)
[2016-02-29] MEDS: HYDROcodone/APAP 7.5-325MG 1 EACH TAB PO PRN (20:12)
[2016-02-29] MEDS: ASPIRIN 81 MG CHEW PO SCH (20:15)
[2016-02-29] MEDS: ZOLPIDEM 10 MG TAB PO SCH (20:15)
[2016-02-29] MEDS: SERTRALINE 100 MG TAB PO SCH (20:16)
[2016-02-29 22:44] VITALS: RESP 16
[2016-03-01] MEDS: LOPERAMIDE 2 MG CAP PO PRN ×2 (03:02→08:20)
[2016-03-01 07:55] VITALS: BP 120/60; PULSE 77; TEMP 98.2
[2016-03-01] MEDS: HEPARIN SODIUM,PORCINE 5,000 UNIT/ML 1 ML VIAL SQ SCH (08:20)
[2016-03-01] MEDS: PANTOPRAZOLE 40 MG TABLET PO SCH (08:20)
[2016-03-01] MEDS: LEVOTHYROXINE 125 MCG TAB PO SCH (08:21)
[2016-03-01] MEDS: CALCIUM CARBONATE 500 MG CHEWABLE PO SCH (08:21)
[2016-03-01] MEDS: SENNOSIDES-DOCUSATE SODIUM 1 EACH TAB PO SCH (08:21)
[2016-03-01] MEDS: LOSARTAN 50 MG TAB PO SCH (08:22)
[2016-03-01] MEDS: METOPROLOL SUCCINATE (ER) 50 MG TAB.ER.24H PO SCH (08:22)
[2016-03-01] MEDS: SODIUM CHLORIDE 0.9% 1,000 ML IV SCH ×2 (08:26→15:04)
== END 2016-03-01 15:44 | disposition home or self-care (01) ==
LOC: EC 15:48 → 6SEL 19:43 → 4MS4W 02-29 21:15
PROVIDERS: ADMIT Internal Medicine; ATTEND Internal Medicine
DX: I47.1 Supraventricular tachycardia (principal); S20.219D Contusion of unspecified front wall of thorax, subsequent encounter; S00.81XD Abrasion of other part of head, subsequent encounter; R19.7 Diarrhea, unspecified; K59.03 Drug induced constipation; E03.9 Hypothyroidism, unspecified; I11.9 Hypertensive heart disease without heart failure; M47.12 Other spondylosis with myelopathy, cervical region; K91.2 Postsurgical malabsorption, not elsewhere classified; M81.0 Age-related osteoporosis without current pathological fracture; L71.9 Rosacea, unspecified; M19.90 Unspecified osteoarthritis, unspecified site; Z79.82 Long term (current) use of aspirin; Z79.899 Other long term (current) drug therapy; Z88.5 Allergy status to narcotic agent; Z88.1 Allergy status to other antibiotic agents; Z91.040 Latex allergy status; Z85.038 Personal history of other malignant neoplasm of large intestine; Z86.718 Personal history of other venous thrombosis and embolism; Z86.14 Personal history of Methicillin resistant Staphylococcus aureus infection; Z80.0 Family history of malignant neoplasm of digestive organs; Z80.3 Family history of malignant neoplasm of breast; T14.8 Other injury of unspecified body region; W01.0XXD Fall on same level from slipping, tripping and stumbling without subsequent striking against object, subsequent encounter; T40.2X5A Adverse effect of other opioids, initial encounter
CPT/HCPCS: 99285 ×2; 96375 ×3; 96376 ×2; 96361 ×4; 96374; 36415; 93005; 93306; 97161; 84439; 84481; 80053 ×2; 82550; 82553; 83735; 84443; 84484; 85025; 85027; 85610; 85730; 81003; 87086; 87077; 87186; 80299; 71010; 71275; 74177; G0378 ×5; J2060; J1644 ×3; Q9967; J2405 ×2; J0696; J0131; 96365; 96372

== ENCOUNTER 2017-12-26 12:01 | Observation (INO) | payer MEDICARE ==
[2017-12-26] MEDS ORDERED: SODIUM CHLORIDE 0.9% 1,000 ML IV STA ×2 (13:20→14:59)
[2017-12-26 13:44] LABS: Basophils % (A) 0 %; Eosinophils # (A) 0.1 k/uL (0-0.7); Eosinophils % (A) 2 %; HCT 30.6 % (34.0-46.0); HGB 10.3 gm/dL (11.4-16.0); Lymphocytes # (A) 0.6 k/uL (1.0-4.8); Lymphocytes % (A) 15 %; MCH 31.8 pg (25.0-35.0); MCHC 33.5 g/dL (31.0-37.0); MCV 94.7 fL (80.0-100.0); Mean Platelet Volume 7.5; Monocytes # (A) 0.3 k/uL (0-1.0); Monocytes % (A) 8 %; Neutrophils % (A) 71 %; Platelet Count 157 k/uL (150-450); RBC 3.23 m/uL (3.80-5.40); RDW 13.9 % (11.5-15.5); WBC 4.3 k/uL (3.8-10.6)
[2017-12-26 13:55] LABS: Albumin 4.6 g/dL (3.5-5.0); Calcium 10.2 mg/dL (8.4-10.2); Potassium 4.5 mmol/L (3.5-5.1); Total Bilirubin 0.6 mg/dL (0.2-1.3); Total Protein 7.3 g/dL (6.3-8.2)
--- NOTE | 2017-12-26 14:25 | ED ---
General Adult HPI - General Chief complaint: Nausea/Vomiting/Diarrhea Stated complaint: vomiting/dizziness Source: patient, RN notes reviewed, old records reviewed Mode of arrival: wheelchair Limitations: no limitations - History of Present Illness Initial comments: 82-year-old female patient presents to ED with nausea, vomiting and dizziness. Patient states that last night she acutely began to feel nausea, had emesis, also had associated diaphoresis and dizziness. Patient states that these symptoms subsided and she went to sleep. When she woke up she was still experiencing nausea with one episode of emesis. Patient went to her primary care provider to be evaluated, who recommended that she seek treatment at the ED. Patient currently does not endorse symptoms of nausea, vomiting or dizziness. Patient also denies fever/chills, cough, rhinitis, abdominal pain, chest pain, shortness of breath. Patient reported that approximately 3 weeks ago she had cold-like symptoms which had been gradually resolving. Patient states that yesterday during the day she felt the best she had last 3 weeks, before the nausea/vomiting and dizziness started while she was lying in bed Systemic: Pt denies fatigue, myalgia, fever/chills, rash. Pt denies weakness, night sweats, weight loss. Neuro: Pt denies headache, visual disturbances, syncope or pre-syncope. HEENT: Pt denies ocular discharge or irritation, otalgia, rhinorrhea, pharyngitis or notable lymphadenopathy. Cardiopulmonary: Pt denies chest pain, SOB, heart palpitations, dyspnea on exertion. Abdominal/GI: Pt denies abdominal pain, n/v/d. : Pt denies dysuria, burning w/ urination, frequency/urgency. Denies new onset urinary or bowel incontinence. MSK: Pt denies myalgia, loss of strength or function in extremities. - Related Data Home Medications Medication Instructions Recorded Confirmed Aspirin EC [Ecotrin] 81 mg PO HS 04/07/15 12/26/17 Metoprolol Succinate [Toprol XL] 50 mg PO BID 04/07/15 12/26/17 Sertraline [Zoloft] 100 mg PO HS 04/07/15 12/26/17 Zolpidem Tartrate [Ambien Cr] 12.5 mg PO HS 04/07/15 12/26/17 Levothyroxine Sodium [Synthroid] 125 mcg PO DAILY 12/26/17 12/26/17 Losartan Potassium 50 mg PO BID 12/26/17 12/26/17 Allergies Allergy/AdvReac Type Severity Reaction Status Date / Time ceftriaxone sodium Allergy Itching Verified 12/26/17 13:50 [From Rocephin] hydromorphone HCl Allergy Dyspnea Verified 12/26/17 13:50 [From Dilaudid] latex Allergy RASH AND Verified 12/26/17 13:50 SWELLING levofloxacin [From Levaquin] Allergy red Verified 12/26/17 13:50 streaks in iv vein morphine Allergy Dyspnea Verified 12/26/17 13:50 codeine AdvReac Rapid Verified 12/26/17 13:50 Heart Rate Review of Systems ROS Statement: Those systems with pertinent positive or pertinent negative responses have been documented in the HPI. ROS Other: All systems not noted in ROS Statement are negative. Past Medical History Past Medical History: Cancer, Deep Vein Thrombosis (DVT), Hypertension, Osteoarthritis (OA), Thyroid Disorder Additional Past Medical History / Comment(s): colon cancer-1991 with chemotherapy, dvt lt leg 2012, VARICOSE VEINS, cervical spondylosis with myelopathy, osteoporosis, rosacea History of Any Multi-Drug Resistant Organisms: MRSA Date of last positivie culture/infection: 2011 MDRO Source:: TOE Past Surgical History: Bowel Resection, Cholecystectomy, Hysterectomy Additional Past Surgical History / Comment(s): rt rotator cuff repair 2 04/2014 , colonoscopy, pain clinic procedures, multiple colon resections including colostomy reversal Past Anesthesia/Blood Transfusion Reactions: No Reported Reaction Past Psychological History: Anxiety Smoking Status: Never smoker Past Alcohol Use History: Rare Past Drug Use History: None Reported - Past Family History Brother(s) Son(s) Family Medical History: Deep Vein Thrombosis (DVT) Additional Family Medical History / Comment(s): Patient has 4 sons and one has history of DVTs Daughter(s) Additional Family Medical History / Comment(s): Patient has one daughter that has Crohn's Sister(s) Family Medical History: Cancer Additional Family Medical History / Comment(s): She has 2 sisters and one has had breast cancer with metastatic disease and the second sister with with liver cancer. Father Family Medical History: Cancer Additional Family Medical History / Comment(s): Father at age 90 from inoperable bowel cancer Mother Family Medical History: Cancer Additional Family Medical History / Comment(s): Mother at age 81 from stomach cancer General Exam - General Exam Comments Initial Comments: Constitutional: NAD, AOX3, Pt has pleasant affect. HEENT: NC/AT, trachea midline, neck supple, no lymphadenopathy. Posterior pharynx non erythematous, without exudates. External ears appear normal, without discharge. Mucous membranes moist. Eyes PERRLA, EOM intact. There is no scleral icterus. No pallor noted. Cardiopulmonary: RRR, no murmurs, rubs or gallops, no JVD noted. Lungs CTAB in anterior and posterior kline. No peripheral edema. Abdominal exam: Abdomen soft and non-distended. Abdomen non-tender to palpation in all 4 quadrants. Bowel sounds active in LLQ. No hepatosplenomegaly. Neuro: CN II-XII grossly intact. Limitations: no limitations Course Vital Signs 12/26/17 12/26/17 12:11 14:15 Temperature 98.2 F Pulse Rate 56 L 54 L Respiratory 18 20 Rate Blood Pressure 149/65 168/63 O2 Sat by Pulse 99 98 Oximetry Medical Decision Making - Medical Decision Making 82-year-old female patient presented to ED after having an acute episode of nausea/vomiting, dizziness, diaphoresis last night while lying in bed. At the time the dizziness was positional, moving her head from side to side. Patient presented here PCP this morning for evaluation. At this time her symptoms had mostly resolved, had 1 episode of emesis this morning but no dizziness or diaphoresis. Patient's PCP advised the patient to present to the ED for further further evaluation of symptoms. Upon presentation to ED patient had a thorough history and physical exam. Physical exam did not reveal any acute pathology. Laboratory investigations were conducted including CBC, CMP, lipase , amylase, lactic acid, troponin, UA - all of which which were within normal limits. A TSH was conducted which displayed an undetectable level, pt is adament she takes 100 mcg qd and denies heart palpitations. T3T4 pending, TSH to be reordered. An EKG was conducted, EKG displayed bradycardia but no concern for acute ischemia. Pt to hold BB while inpt and f/u w/ PCP outpt. Pt bradycardia is not symptomatic. A chest x-ray is conducted, did not display any acute process. Patient to be admitted to observation for further evaluation of her symptoms. Case discussed at length with Dr. Johnson. - Lab Data Result diagrams: 12/26/17 13:11 12/26/17 13:11 Lab Results 12/26/17 12/26/17 12/26/17 Range/Units 13:11 13:11 13:11 WBC 4.3 (3.8-10.6) k/uL RBC 3.23 L (3.80-5.40) m/uL Hgb 10.3 L (11.4-16.0) gm/dL Hct 30.6 L (34.0-46.0) % MCV 94.7 (80.0-100.0) fL MCH 31.8 (25.0-35.0) pg MCHC 33.5 (31.0-37.0) g/dL RDW 13.9 (11.5-15.5) % Plt Count 157 (150-450) k/uL Neutrophils % 71 % Lymphocytes % 15 % Monocytes % 8 % Eosinophils % 2 % Basophils % 0 % Neutrophils # 3.0 (1.3-7.7) k/uL Lymphocytes # 0.6 L (1.0-4.8) k/uL Monocytes # 0.3 (0-1.0) k/uL Eosinophils # 0.1 (0-0.7) k/uL Basophils # 0.0 (0-0.2) k/uL Sodium 142 (137-145) mmol/L Potassium 4.5 (3.5-5.1) mmol/L Chloride 105 (98-107) mmol/L Carbon Dioxide 27 (22-30) mmol/L Anion Gap 10 mmol/L BUN 20 H (7-17) mg/dL Creatinine 0.78 (0.52-1.04) mg/dL Est GFR (CKD-EPI)AfAm 81 (>60 ml/min/1.73 sqM) Est GFR (CKD-EPI)NonAf 70 (>60 ml/min/1.73 sqM) Glucose 96 (74-99) mg/dL Plasma Lactic Acid [place] (0.7-2.0) mmol/L Calcium 10.2 (8.4-10.2) mg/dL Total Bilirubin 0.6 (0.2-1.3) mg/dL AST 32 (14-36) U/L ALT 33 (9-52) U/L Alkaline Phosphatase 69 (38-126) U/L Troponin I <0.012 (0.000-0.034) ng/mL Total Protein 7.3 (6.3-8.2) g/dL Albumin 4.6 (3.5-5.0) g/dL Amylase 109 (30-110) U/L Lipase 193 (23-300) U/L 12/26/17 Range/Units 14:25 WBC (3.8-10.6) k/uL RBC (3.80-5.40) m/uL Hgb (11.4-16.0) gm/dL Hct (34.0-46.0) % MCV (80.0-100.0) fL MCH (25.0-35.0) pg MCHC (31.0-37.0) g/dL RDW (11.5-15.5) % Plt Count (150-450) k/uL Neutrophils % % Lymphocytes % % Monocytes % % Eosinophils % % Basophils % % Neutrophils # (1.3-7.7) k/uL Lymphocytes # (1.0-4.8) k/uL Monocytes # (0-1.0) k/uL Eosinophils # (0-0.7) k/uL Basophils # (0-0.2) k/uL Sodium (137-145) mmol/L Potassium (3.5-5.1) mmol/L Chloride (98-107) mmol/L Carbon Dioxide (22-30) mmol/L Anion Gap mmol/L BUN (7-17) mg/dL Creatinine (0.52-1.04) mg/dL Est GFR (CKD-EPI)AfAm (>60 ml/min/1.73 sqM) Est GFR (CKD-EPI)NonAf (>60 ml/min/1.73 sqM) Glucose (74-99) mg/dL Plasma Lactic Acid [place] 1.4 (0.7-2.0) mmol/L Calcium (8.4-10.2) mg/dL Total Bilirubin (0.2-1.3) mg/dL AST (14-36) U/L ALT (9-52) U/L Alkaline Phosphatase (38-126) U/L Troponin I (0.000-0.034) ng/mL Total Protein (6.3-8.2) g/dL Albumin (3.5-5.0) g/dL Amylase (30-110) U/L Lipase (23-300) U/L Disposition Clinical Impression: Hypothyroidism, Emesis Disposition: ADMITTED IP TO THIS [facility] Condition: Good Referrals: Damir Beltran MD [Primary Care Provider] - 1-2 days
--- NOTE | 2017-12-26 14:45 | XR ---
EXAMINATION TYPE: XR chest 2V DATE OF EXAM: 12/26/2017 COMPARISON: 02/27/2016 HISTORY: Dizziness and hypertension. History of colon carcinoma. TECHNIQUE: Frontal and lateral views of the chest are obtained. FINDINGS: There is no focal air space opacity, pleural effusion, or pneumothorax seen. Chronic left basilar subsegmental atelectasis is present. The cardiac silhouette size is within normal limits. T he osseous structures are intact. Chronic deformity of the right humerus is present. Rounded overlapp ing density of the left humerus is favored to be external to the patient. IMPRESSION: Minimal chronic left basilar subsegmental atelectasis. No acute cardiopulmonary process.
[2017-12-26 15:01] LABS: Amorphous Sediment,Urine Rare /hpf; Appearance,Urine Clear (Clear); Bilirubin,Urine Negative (Negative); Blood,Urine Negative (Negative); Color,Urine Yellow; Glucose,Urine (UA) Negative (Negative); Ketones,Urine Negative (Negative); Leukocyte Esterase,Urine Trace (Negative); Nitrite,Urine Negative (Negative); PH, Urine 6.5 (5.0-8.0); Protein,Urine Negative (Negative); RBC,Urine 2 /hpf (0-5); Specific Gravity,Urine 1.011 (1.001-1.035); Squamous Epithelial Cell,Urine <1 /hpf (0-4); Urobilinogen,Urine <2.0 mg/dL (<2.0)
[2017-12-26] MEDS ORDERED: NALOXONE 0.4 MG/ML 1 ML VIAL IV PRN (15:58)
[2017-12-26] MEDS ORDERED: ASPIRIN 81 MG PO STA (16:06)
[2017-12-26] MEDS ORDERED: NITROGLYCERIN SL TABS 0.4 MG TAB SUBLINGUAL PRN (16:06)
[2017-12-26 16:54] LABS: T4, Free (Free Thyroxine) 1.94 ng/dL (0.78-2.19)
--- NOTE | 2017-12-26 17:31 | ED ---
Medical Decision Making - Medical Decision Making T4 wnl. No further concern for hyperthyroidism. - Lab Data Result diagrams: 12/26/17 13:11 12/26/17 13:11 Lab Results 12/26/17 12/26/17 12/26/17 Range/Units 13:11 13:11 13:11 WBC 4.3 (3.8-10.6) k/uL RBC 3.23 L (3.80-5.40) m/uL Hgb 10.3 L (11.4-16.0) gm/dL Hct 30.6 L (34.0-46.0) % MCV 94.7 (80.0-100.0) fL MCH 31.8 (25.0-35.0) pg MCHC 33.5 (31.0-37.0) g/dL RDW 13.9 (11.5-15.5) % Plt Count 157 (150-450) k/uL Neutrophils % 71 % Lymphocytes % 15 % Monocytes % 8 % Eosinophils % 2 % Basophils % 0 % Neutrophils # 3.0 (1.3-7.7) k/uL Lymphocytes # 0.6 L (1.0-4.8) k/uL Monocytes # 0.3 (0-1.0) k/uL Eosinophils # 0.1 (0-0.7) k/uL Basophils # 0.0 (0-0.2) k/uL Sodium 142 (137-145) mmol/L Potassium 4.5 (3.5-5.1) mmol/L Chloride 105 (98-107) mmol/L Carbon Dioxide 27 (22-30) mmol/L Anion Gap 10 mmol/L BUN 20 H (7-17) mg/dL Creatinine 0.78 (0.52-1.04) mg/dL Est GFR (CKD-EPI)AfAm 81 (>60 ml/min/1.73 sqM) Est GFR (CKD-EPI)NonAf 70 (>60 ml/min/1.73 sqM) Glucose 96 (74-99) mg/dL Plasma Lactic Acid [place] (0.7-2.0) mmol/L Calcium 10.2 (8.4-10.2) mg/dL Total Bilirubin 0.6 (0.2-1.3) mg/dL AST 32 (14-36) U/L ALT 33 (9-52) U/L Alkaline Phosphatase 69 (38-126) U/L Troponin I <0.012 (0.000-0.034) ng/mL Total Protein 7.3 (6.3-8.2) g/dL Albumin 4.6 (3.5-5.0) g/dL Amylase 109 (30-110) U/L Lipase 193 (23-300) U/L TSH (0.465-4.680) mIU/L Free T4 (0.78-2.19) ng/dL Urine Color Urine Appearance (Clear) Urine pH (5.0-8.0) Ur Specific [place] (1.001-1.035) Urine Protein (Negative) Urine Glucose (UA) (Negative) Urine Ketones (Negative) Urine Blood (Negative) Urine Nitrite (Negative) Urine Bilirubin (Negative) Urine Urobilinogen (<2.0) mg/dL Ur Leukocyte Esterase (Negative) Urine RBC (0-5) /hpf Urine WBC (0-5) /hpf Ur Squamous Epith Cells (0-4) /hpf Amorphous Sediment (None) /hpf 12/26/17 12/26/17 12/26/17 Range/Units 13:11 14:25 14:25 WBC (3.8-10.6) k/uL RBC (3.80-5.40) m/uL Hgb (11.4-16.0) gm/dL Hct (34.0-46.0) % MCV (80.0-100.0) fL MCH (25.0-35.0) pg MCHC (31.0-37.0) g/dL RDW (11.5-15.5) % Plt Count (150-450) k/uL Neutrophils % % Lymphocytes % % Monocytes % % Eosinophils % % Basophils % % Neutrophils # (1.3-7.7) k/uL Lymphocytes # (1.0-4.8) k/uL Monocytes # (0-1.0) k/uL Eosinophils # (0-0.7) k/uL Basophils # (0-0.2) k/uL Sodium (137-145) mmol/L Potassium (3.5-5.1) mmol/L Chloride (98-107) mmol/L Carbon Dioxide (22-30) mmol/L Anion Gap mmol/L BUN (7-17) mg/dL Creatinine (0.52-1.04) mg/dL Est GFR (CKD-EPI)AfAm (>60 ml/min/1.73 sqM) Est GFR (CKD-EPI)NonAf (>60 ml/min/1.73 sqM) Glucose (74-99) mg/dL Plasma Lactic Acid [place] 1.4 (0.7-2.0) mmol/L Calcium (8.4-10.2) mg/dL Total Bilirubin (0.2-1.3) mg/dL AST (14-36) U/L ALT (9-52) U/L Alkaline Phosphatase (38-126) U/L Troponin I (0.000-0.034) ng/mL Total Protein (6.3-8.2) g/dL Albumin (3.5-5.0) g/dL Amylase (30-110) U/L Lipase (23-300) U/L TSH <0.015 L (0.465-4.680) mIU/L Free T4 1.94 (0.78-2.19) ng/dL Urine Color Yellow Urine Appearance Clear (Clear) Urine pH 6.5 (5.0-8.0) Ur Specific [place] 1.011 (1.001-1.035) Urine Protein Negative (Negative) Urine Glucose (UA) Negative (Negative) Urine Ketones Negative (Negative) Urine Blood Negative (Negative) Urine Nitrite Negative (Negative) Urine Bilirubin Negative (Negative) Urine Urobilinogen <2.0 (<2.0) mg/dL Ur Leukocyte Esterase Trace H (Negative) Urine RBC 2 (0-5) /hpf Urine WBC 2 (0-5) /hpf Ur Squamous Epith Cells <1 (0-4) /hpf Amorphous Sediment Rare H (None) /hpf Disposition Clinical Impression: Emesis Disposition: ADMITTED IP TO THIS HOSP Condition: Good
[2017-12-26] MEDS ORDERED: ACETAMINOPHEN TAB 325 MG TAB PO PRN (19:55)
[2017-12-26] MEDS: ONDANSETRON 4 MG/2 ML VIAL IVP PRN ×2 (20:03→23:56)
[2017-12-26 20:49] LABS: Creatine Kinase 25 U/L (30-135)
[2017-12-26] MEDS ORDERED: ZOLPIDEM 5 MG TAB PO SCH (21:00)
[2017-12-26 21:01] LABS: Creatine Kinase MB <0.2 ng/mL (0.0-2.4); Troponin I <0.012 ng/mL (0.000-0.034)
[2017-12-26] MEDS: SERTRALINE 100 MG TAB PO SCH (21:11)
[2017-12-26] MEDS: METOPROLOL SUCCINATE (ER) 50 MG TAB.ER.24H PO SCH (21:11)
[2017-12-26] MEDS: LOSARTAN 50 MG TAB PO SCH (21:11)
[2017-12-26] MEDS ORDERED: PROCHLORPERAZINE 10 MG TAB PO PRN (23:47)
[2017-12-27 02:07] LABS: Cholesterol 143 mg/dL (<200); HDL Cholesterol 37 mg/dL (40-60); LDL Cholesterol,Calculated 73 mg/dL (0-99); Triglycerides 166 mg/dL (<150)
[2017-12-27 02:18] LABS: Creatine Kinase 31 U/L (30-135)
[2017-12-27 02:32] LABS: Creatine Kinase MB 0.3 ng/mL (0.0-2.4); Troponin I <0.012 ng/mL (0.000-0.034)
[2017-12-27] MEDS: ONDANSETRON 4 MG/2 ML VIAL IVP PRN (04:57)
[2017-12-27] MEDS ORDERED: LEVOTHYROXINE 75 MCG TAB PO SCH (06:30)
[2017-12-27] MEDS: METOPROLOL SUCCINATE (ER) 50 MG TAB.ER.24H PO SCH ×2 (08:13→19:41)
[2017-12-27] MEDS: LOSARTAN 50 MG TAB PO SCH ×2 (08:13→19:41)
[2017-12-27] MEDS ORDERED: ATORVASTATIN 80 MG TAB PO SCH (09:00)
[2017-12-27] MEDS ORDERED: ASPIRIN 325 MG TAB PO SCH (09:00)
[2017-12-27] MEDS ORDERED: MECLIZINE 25 MG TAB PO PRN (09:37)
[2017-12-27] MEDS ORDERED: METOCLOPRAMIDE 5 MG TAB PO PRN (09:40)
--- NOTE | 2017-12-27 10:07 | CT ---
EXAMINATION TYPE: CT brain wo con DATE OF EXAM: 12/27/2017 COMPARISON: Previous study dated 02/21/2016 HISTORY: dizziness CT DLP: 1093.4 mGycm Automated exposure control for dose reduction was used. FINDINGS: There are mild, generalized changes of sulcal prominence and ventriculomegaly, compatible with atroph ic change. There is diffuse periventricular white matter lucency, compatible with chronic white matter ischemic change. There is no acute focal lesion, mass effect or midline shift identified. I do not see evidenc e of intracranial blood. Visualized portions of the paranasal sinuses and mastoids are clear. The bony calvarium is intact. IMPRESSION: 1. NO ACUTE INTRACRANIAL ABNORMALITY. 2. MILD DEGENERATIVE CHANGE.
[2017-12-27] MEDS: ALPRAZolam 0.25 MG TAB PO PRN ×2 (12:30→21:06)
--- NOTE | 2017-12-27 12:47 | P.HPIM ---
History of Present Illness H&P Date: 12/27/17 Chief Complaint: Nausea HISTORY AND PHYSICAL AND DISCHARGE SUMMARY: This is an 82-year-old female patient of Dr. Beltran with past medical history for hypertension and hypertensive cardiovascular disease, hypothyroidism , cervical spondylosis with myelopathy, osteoporosis, rosacea, recurrent depression, colon cancer diagnosed in 1991 status post 4-5 bowel resections reversal of colostomy. Her last colonoscopy with Dr. Guajardo at [facility] in January 2015 showed no cancer. 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 Patient states that she has been nauseated for the last couple of days. It is most of the time and is worse when she is turning in bed. She denies any fullness in her ears, tinnitus, hearing loss. She does state she hears a crack in her right ear. She did have one episode of vomiting at home and one here in the emergency center. She denies having any trouble with her balance and confirms this. She denies any falling to one side. She denies any confusion. No headache. She states she's had psoriasis on the back of her neck and is under treatment with Dr. Beltran with an ointment. She denies any history of stroke. Patient was told to come into [facility] emergency center for evaluation. Vital signs were stable, hemoglobin 10.3, creatinine 0.78. Electrolytes and liver function tests are all within normal limits. Lactic acid 1.4, troponin 3 draws negative. Triglycerides 166, cholesterol 143, LDL 73 and HDL 37. TSH came back at less than 0.015. Urinalysis was negative for infection. Amylase and lipase were within normal limits. Patient was placed in the observation unit and levothyroxine change from 125 g to 75 g, consult with neurology requested , patient started on meclizine and CAT scan of the brain ordered. Patient was seen by Dr. Abdelrahman Ware and dizziness secondary to gastric flu symptoms. CAT scan of the brain was unremarkable. Patient was cleared for discharge home with meclizine and Zofran and new dose of levothyroxine. Discharge Medication List Aspirin EC [Ecotrin Low Dose] 81 mg PO HS 04/07/15 [History] Metoprolol Succinate [Toprol XL] 50 mg PO BID 04/07/15 [History] Sertraline [Zoloft] 100 mg PO HS 04/07/15 [History] Zolpidem Tartrate [Ambien Cr] 12.5 mg PO HS 04/07/15 [History] Losartan Potassium 50 mg PO BID 12/26/17 [History] Levothyroxine Sodium [Synthroid] 75 mcg PO DAILY@0630 #30 tab 12/27/17 [Rx] Meclizine [Antivert] 25 mg PO TID PRN #60 tab 12/27/17 [Rx] Ondansetron [Zofran] 4 mg PO Q8HR PRN #21 tab 12/27/17 [Rx] Review of Systems All systems: negative Constitutional: Denies chills, Denies fatigue, Denies fever, Denies lethargy, Denies malaise, Denies poor appetite, Denies weight loss Eyes: denies blurred vision, denies pain Ears: deny: decreased hearing, ear discharge, earache, tinnitus Ears, nose, mouth and throat: Denies dental pain, Denies dysphagia, Denies headache, Denies nasal congestion, Denies sore throat Cardiovascular: Denies chest pain, Denies decreased exercise tolerance, Denies dyspnea on exertion, Denies edema, Denies palpitations, Denies shortness of breath, Denies syncope Respiratory: Denies cough, Denies cough with sputum, Denies dyspnea, Denies excessive sputum, Denies hemoptysis, Denies home oxygen, Denies wheezing Gastrointestinal: Denies abdominal pain, Denies change in bowel habits, Denies coffee ground emesis, Denies constipation, Denies diarrhea, Denies loss of appetite, Denies melena, Denies nausea, Denies vomiting Genitourinary: Denies difficulty voiding, Denies dysuria, Denies hematuria Musculoskeletal: Denies myalgias Integumentary: Denies pruritus, Denies rash, Denies wounds Neurological: Denies balance difficulties, Denies change in mentation, Denies change in speech, Denies confusion, Denies convulsions, Denies double vision, Denies gait dysfunction, Denies head injury, Denies headaches, Denies loss of vision, Denies memory loss, Denies motor disturbance, Denies numbness, Denies seizures, Denies syncope, Denies weakness Psychiatric: Denies anxiety, Denies depression Endocrine: Denies fatigue, Denies weight change Past Medical History Past Medical History: Cancer, Deep Vein Thrombosis (DVT), Hypertension, Osteoarthritis (OA), Thyroid Disorder Additional Past Medical History / Comment(s): hx bowel obstruction/colon cancer- 1991 with sx and chemotherapy,"short bowel syndrome/chronic diarrhea. dvt lt leg 2012, VARICOSE VEINS, cervical spondylosis with myelopathy, osteoporosis, rosacea,past fall and fx jaw(not wired) History of Any Multi-Drug Resistant Organisms: MRSA Date of last positivie culture/infection: 2011 MDRO Source:: LT GREAT TOE Past Surgical History: Bowel Resection, Cholecystectomy, Hysterectomy Additional Past Surgical History / Comment(s): rt rotator cuff repair 2 04/2014 , colonoscopy, pain clinic procedures, multiple colon resections including colostomy reversal, cataracts Past Anesthesia/Blood Transfusion Reactions: No Reported Reaction Smoking Status: Never smoker - Past Family History Brother(s) Son(s) Family Medical History: Deep Vein Thrombosis (DVT) Additional Family Medical History / Comment(s): Patient has 4 sons and one has history of DVTs Daughter(s) Additional Family Medical History / Comment(s): Patient has one daughter that has Crohn's Sister(s) Family Medical History: Cancer Additional Family Medical History / Comment(s): She has 2 sisters and one has had breast cancer with metastatic disease and the second sister with with liver cancer. Father Family Medical History: Cancer Additional Family Medical History / Comment(s): Father at age 90 from inoperable bowel cancer Mother Family Medical History: Cancer Additional Family Medical History / Comment(s): Mother at age 81 from stomach cancer Medications and Allergies Home Medications Medication Instructions Recorded Confirmed Type Aspirin EC [Ecotrin Low Dose] 81 mg PO HS 04/07/15 12/26/17 History Metoprolol Succinate [Toprol XL] 50 mg PO BID 04/07/15 12/26/17 History Sertraline [Zoloft] 100 mg PO HS 04/07/15 12/26/17 History Zolpidem Tartrate [Ambien Cr] 12.5 mg PO HS 04/07/15 12/26/17 History Losartan Potassium 50 mg PO BID 12/26/17 12/26/17 History Levothyroxine Sodium [Synthroid] 75 mcg PO DAILY@0630 #30 tab 12/27/17 Rx Meclizine [Antivert] 25 mg PO TID PRN #60 tab 12/27/17 Rx Ondansetron [Zofran] 4 mg PO Q8HR PRN #21 tab 12/27/17 Rx Allergies Allergy/AdvReac Type Severity Reaction Status Date / Time ceftriaxone sodium Allergy Itching Verified 12/26/17 13:50 [From Rocephin] hydromorphone HCl Allergy Dyspnea Verified 12/26/17 13:50 [From Dilaudid] latex Allergy RASH AND Verified 12/26/17 13:50 SWELLING levofloxacin [From Levaquin] Allergy red Verified 12/26/17 13:50 streaks in iv vein morphine Allergy Dyspnea Verified 12/26/17 13:50 codeine AdvReac Rapid Verified 12/26/17 13:50 Heart Rate Physical Exam Vitals: Vital Signs Temp Pulse Pulse Resp BP BP Pulse Ox 12/27/17 08:00 98.3 F 72 18 146/72 96 12/27/17 03:59 18 12/27/17 03:30 98.2 F 63 18 137/65 97 12/27/17 00:00 18 12/26/17 23:55 98.3 F 67 18 146/73 97 12/26/17 20:00 18 12/26/17 19:45 98.3 F 54 L 18 159/72 98 12/26/17 17:15 98.4 F 55 L 16 182/71 98 12/26/17 17:06 98.0 F 57 L 20 132/61 12/26/17 15:20 58 L 18 136/61 98 12/26/17 14:15 54 L 20 168/63 98 12/26/17 12:11 98.2 F 56 L 18 149/65 99 Intake and Output 12/26/17 12/27/17 12/27/17 22:59 06:59 14:59 Intake Total 90 Balance 90 Intake: Oral 90 Other: Voiding Method Toilet Toilet Toilet Bedside Commode # Voids 1 # Bowel Movements 1 Weight 58.4 kg Gen: This is an 81-year-old female. She is in bed and appears to be in no acute distress. Patient does become nauseated with movement. HEENT: Head is normocephalic. Ecchymosis noted on the right side of her face and jaw area. Pupils equal, round. Sclerae is anicteric. Mucous membranes of the mouth are somewhat dry. NECK: Supple. No JVD. No lymphadenopathy. No thyromegaly. LUNGS: Clear to auscultation. No wheezes or rhonchi. No intercostal retractions. HEART: Regular rate and rhythm. No murmur. ABDOMEN: Soft. Bowel sounds are present. No masses. Mild generalized tenderness. EXTREMITIES: No pedal edema. No calf tenderness. Dorsalis pedis is +2 bilaterally. NEUROLOGICAL: Patient is awake, alert and oriented x3. Cranial nerves 2 through 12 are grossly intact. Positive nystagmus. Results CBC & Chem 7: 12/26/17 13:11 12/26/17 13:11 Labs: Abnormal Lab Results - Last 24 Hours (Table) 12/26/17 12/26/17 12/26/17 Range/Units 13:11 13:11 13:11 RBC 3.23 L (3.80-5.40) m/uL Hgb 10.3 L (11.4-16.0) gm/dL Hct 30.6 L (34.0-46.0) % Lymphocytes # 0.6 L (1.0-4.8) k/uL BUN 20 H (7-17) mg/dL Total Creatine Kinase (30-135) U/L Triglycerides (<150) mg/dL HDL Cholesterol (40-60) mg/dL TSH <0.015 L (0.465-4.680) mIU/L Ur Leukocyte Esterase (Negative) Amorphous Sediment (None) /hpf 12/26/17 12/26/17 12/27/17 Range/Units 14:25 20:00 01:18 RBC (3.80-5.40) m/uL Hgb (11.4-16.0) gm/dL Hct (34.0-46.0) % Lymphocytes # (1.0-4.8) k/uL BUN (7-17) mg/dL Total Creatine Kinase 25 L (30-135) U/L Triglycerides 166 H (<150) mg/dL HDL Cholesterol 37 L (40-60) mg/dL TSH (0.465-4.680) mIU/L Ur Leukocyte Esterase Trace H (Negative) Amorphous Sediment Rare H (None) /hpf Thrombosis Risk Factor Assmnt - Choose All That Apply Each Risk Factor Represents 3 Points: Age 75 years or older Thrombosis Risk Factor Assessment Total Risk Factor Score: 3 Thrombosis Risk Factor Assessment Level: Moderate Risk Assessment and Plan Plan: 1. Nausea most likely secondary to vertigo but CVA ruled out. CAT scan of the brain, consult with neurology and meclizine added. Continue aspirin 81 mg daily and Lipitor. 2. Hypothyroidism with low TSH. Levothyroxine decreased to 75 g daily. 3. History of bowel cancer status post multiple surgeries including colostomy and colostomy reversal, stable. 4. Hypertension hypertensive cardio vascular disease. Continue Cozaar 50 mg twice daily and Toprol-XL 50 mg daily. 5. History of DVT in 2012 without recurrence. 6. Cervical myelopathy chronic and stable. 7. Gastrointestinal prophylaxis. Continue Protonix. 8. DVT prophylaxis heparin subcu. Patient placed on the observation unit. Discharge plan: Home. Impression and plan of care have been directed as dictated by the signing physician. Thi Brooks nurse practitioner acting as scribe for signing physician.
[2017-12-27 19:24] VITALS: TEMP 98.9
[2017-12-27] MEDS: SERTRALINE 100 MG TAB PO SCH (19:42)
--- NOTE | 2017-12-27 20:36 | P.CNNES ---
History of Present Illness Consult date: 12/27/17 History of Present Illness: The patient is an 82-year-old right-handed white female states that she has been not feeling well for the past 2 days. She's been having fever and chills nausea and vomiting and diarrhea. Patient reports that yesterday when she bent over to vomit she had some dizziness which was brief. She denied any vertigo. She denies any dizziness currently. She denied any neurologic complaints such as focal weakness numbness visual changes speech disturbance or loss of balance. She feels much better today in terms of her flulike symptoms. She denies any headache or dizziness. There is been no more nausea or vomiting. She feels that she was dehydrated and feels much better now. She states that last week she took a bus trip for 5 hours up [place] which wore her down. Review of Systems Constitutional: Denies chills, Denies fever Eyes: denies blurred vision, denies pain Ears, nose, mouth and throat: Denies headache, Denies sore throat Cardiovascular: Denies chest pain, Denies shortness of breath Respiratory: Denies cough Gastrointestinal: Denies abdominal pain, Denies diarrhea, Denies nausea, Denies vomiting Musculoskeletal: Denies myalgias Neurological: Denies numbness, Denies weakness Psychiatric: Denies anxiety, Denies depression Past Medical History Past Medical History: Cancer, Deep Vein Thrombosis (DVT), Hypertension, Osteoarthritis (OA), Thyroid Disorder Additional Past Medical History / Comment(s): hx bowel obstruction/colon cancer- 1991 with sx and chemotherapy,"short bowel syndrome/chronic diarrhea. dvt lt leg 2012, VARICOSE VEINS, cervical spondylosis with myelopathy, osteoporosis, rosacea,past fall and fx jaw(not wired) History of Any Multi-Drug Resistant Organisms: MRSA Date of last positivie culture/infection: 2011 MDRO Source:: LT GREAT TOE Past Surgical History: Bowel Resection, Cholecystectomy, Hysterectomy Additional Past Surgical History / Comment(s): rt rotator cuff repair 2 04/2014 , colonoscopy, pain clinic procedures, multiple colon resections including colostomy reversal, cataracts Past Anesthesia/Blood Transfusion Reactions: No Reported Reaction Smoking Status: Never smoker - Past Family History Brother(s) Son(s) Family Medical History: Deep Vein Thrombosis (DVT) Additional Family Medical History / Comment(s): Patient has 4 sons and one has history of DVTs Daughter(s) Additional Family Medical History / Comment(s): Patient has one daughter that has Crohn's Sister(s) Family Medical History: Cancer Additional Family Medical History / Comment(s): She has 2 sisters and one has had breast cancer with metastatic disease and the second sister with with liver cancer. Father Family Medical History: Cancer Additional Family Medical History / Comment(s): Father at age 90 from inoperable bowel cancer Mother Family Medical History: Cancer Additional Family Medical History / Comment(s): Mother at age 81 from stomach cancer Medications and Allergies Home Medications Medication Instructions Recorded Confirmed Type Aspirin EC [Ecotrin Low Dose] 81 mg PO HS 04/07/15 12/26/17 History Metoprolol Succinate [Toprol XL] 50 mg PO BID 04/07/15 12/26/17 History Sertraline [Zoloft] 100 mg PO HS 04/07/15 12/26/17 History Zolpidem Tartrate [Ambien Cr] 12.5 mg PO HS 04/07/15 12/26/17 History Losartan Potassium 50 mg PO BID 12/26/17 12/26/17 History Levothyroxine Sodium [Synthroid] 75 mcg PO DAILY@0630 #30 tab 12/27/17 Rx Meclizine [Antivert] 25 mg PO TID PRN #60 tab 12/27/17 Rx Ondansetron [Zofran] 4 mg PO Q8HR PRN #21 tab 12/27/17 Rx Allergies Allergy/AdvReac Type Severity Reaction Status Date / Time ceftriaxone sodium Allergy Itching Verified 12/26/17 13:50 [From Rocephin] hydromorphone HCl Allergy Dyspnea Verified 12/26/17 13:50 [From Dilaudid] latex Allergy RASH AND Verified 12/26/17 13:50 SWELLING levofloxacin [From Levaquin] Allergy red Verified 12/26/17 13:50 streaks in iv vein morphine Allergy Dyspnea Verified 12/26/17 13:50 codeine AdvReac Rapid Verified 12/26/17 13:50 Heart Rate Physical Examination - Vital Signs Vital Signs: Vital Signs Temp Pulse Resp BP Pulse Ox 12/27/17 18:55 98.9 F 59 L 16 132/69 94 L 12/27/17 16:00 98.6 F 67 16 129/65 97 12/27/17 12:00 72 18 12/27/17 08:00 98.3 F 72 18 146/72 96 12/27/17 03:59 18 12/27/17 03:30 98.2 F 63 18 137/65 97 12/27/17 00:00 18 12/26/17 23:55 98.3 F 67 18 146/73 97 Intake and Output 12/27/17 12/27/17 12/27/17 06:59 14:59 22:59 Other: Voiding Method Toilet Toilet Toilet Bedside Commode Bedside Commode # Voids 1 3 # Bowel Movements 1 - Constitutional General appearance: cooperative - EENT EENT: PERRL, vision intact - Respiratory Respiratory: lungs clear - Cardiovascular Cardiovascular: regular rate, normal S1, normal S2 - Integumentary Integumentary: normal - Neurologic Neurologic examination: Mental status: She was awake alert and oriented 3. Her speech was fluent. There was no a aphasia or dysarthria. Cranial nerves: Cranial nerves II through XII are grossly intact Motor examination: 5 out of 5 throughout Sensory examination: Intact to light touch Gait: Intact Results - Laboratory Findings CBC and BMP: 12/26/17 13:11 12/26/17 13:11 Abnormal Lab Findings: Abnormal Labs 12/26/17 12/26/17 12/26/17 13:11 13:11 13:11 RBC 3.23 L Hgb 10.3 L Hct 30.6 L Lymphocytes # 0.6 L BUN 20 H Total Creatine Kinase Triglycerides HDL Cholesterol TSH <0.015 L Ur Leukocyte Esterase Amorphous Sediment 12/26/17 12/26/17 12/27/17 14:25 20:00 01:18 RBC Hgb Hct Lymphocytes # BUN Total Creatine Kinase 25 L Triglycerides 166 H HDL Cholesterol 37 L TSH Ur Leukocyte Esterase Trace H Amorphous Sediment Rare H Assessment and Plan (1) Dehydration Current Visit: No Status: Acute SNOMED Code(s): 80609092 (2) Gastroenteritis Current Visit: No Status: Acute SNOMED Code(s): 60328991 (3) Dizziness Current Visit: Yes Status: Acute SNOMED Code(s): 585008557 Plan: The patient is an 82-year-old woman who has a 2 day history of flulike symptoms consisting of fever diarrhea nausea and vomiting. She had an episode of dizziness when bending over to vomit. This was brief. It has not recurred. She feels much better today. Her episode of dizziness was likely secondary to the flu symptoms and vomiting. She has had a CAT scan of the brain which was unremarkable
[2017-12-27 20:56] VITALS: BP 136/61; PULSE 62; RESP 18
[2017-12-27] MEDS ORDERED: ASPIRIN 81 MG PO SCH (21:00)
--- NOTE | 2018-01-08 18:05 | CDI ---
Outpatient Documentation Clarification Form Date: 01/08/18 CDS/Telegraph Inspector Name: Mirta Caballero Phone: If you have question, contact Nadeen Jane, [employer] at M-F 8:30 am to 6pm. Patient Name: Jaqueline Lacey Admit Date: 12/26/17 Discharge Date: 12/27/17 ATTENTION: The Clinical Documentation Specialists (CDI) and [facility] Coding Staff appreciate your assistance in clarifying documentation. Please respond to the clarification below the line at the bottom and electronically sign. The CDI & [facility] Coding staff will review the response and follow-up if needed. Please note: Queries are made part of the Legal Health Record. If you have any questions, please contact the author of this message via ITS or call the [employer]. Dr. Elizabeth, Your assistance is needed for clarification on conflicting documentation on this account. On your combo H&P and discharge summary, dictated 12/27/17 @ 09:34 has nausea most likely secondary to vertigo, but CVA ruled out. Neurology consult, dictated 12/27/17 @ 20:26 has dehydration, gastroenteritis, dizziness. Not sure if you were able to view the Neurology consult. Please clarify the conflicting documentation below the line on this form. Nausea due to Vertigo ____ Nausea due to Gastroenteritis ____ Specify other ____ Unable to determine ____ I appreciate your help! Thank you! nausea sec to vertigo MTDD
== END 2017-12-27 21:37 | disposition home or self-care (01) ==
LOC: EC 12:01 → 1SOBS 16:06 → 3SCARD 12-27 18:11
PROVIDERS: ADMIT Internal Medicine; ATTEND Internal Medicine
DX: R42 Dizziness and giddiness (principal); R11.2 Nausea with vomiting, unspecified; R61 Generalized hyperhidrosis; E03.9 Hypothyroidism, unspecified; I11.9 Hypertensive heart disease without heart failure; M19.90 Unspecified osteoarthritis, unspecified site; M81.0 Age-related osteoporosis without current pathological fracture; M47.12 Other spondylosis with myelopathy, cervical region; K52.9 Noninfective gastroenteritis and colitis, unspecified; K91.2 Postsurgical malabsorption, not elsewhere classified; E86.0 Dehydration; L71.9 Rosacea, unspecified; I83.90 Asymptomatic varicose veins of unspecified lower extremity; F41.9 Anxiety disorder, unspecified; F33.9 Major depressive disorder, recurrent, unspecified; R00.1 Bradycardia, unspecified; L40.9 Psoriasis, unspecified; Z79.82 Long term (current) use of aspirin; Z79.890 Hormone replacement therapy; Z79.899 Other long term (current) drug therapy; Z88.1 Allergy status to other antibiotic agents; Z88.5 Allergy status to narcotic agent; Z91.040 Latex allergy status; Z86.718 Personal history of other venous thrombosis and embolism; Z85.038 Personal history of other malignant neoplasm of large intestine; Z92.21 Personal history of antineoplastic chemotherapy; Z90.49 Acquired absence of other specified parts of digestive tract; Z90.710 Acquired absence of both cervix and uterus; Z86.14 Personal history of Methicillin resistant Staphylococcus aureus infection; Z91.81 History of falling; Z87.81 Personal history of (healed) traumatic fracture; Z98.49 Cataract extraction status, unspecified eye; Z80.3 Family history of malignant neoplasm of breast; Z80.0 Family history of malignant neoplasm of digestive organs; Z83.2 Family history of diseases of the blood and blood-forming organs and certain disorders involving the immune mechanism; Z83.79 Family history of other diseases of the digestive system
CPT/HCPCS: 96376 ×2; 96361 ×3; 96374; 99285; 36415; 93005; 84439; 80061; 80053; 84443; 82150; 82550 ×2; 82553 ×2; 83605; 83690; 84484 ×2; 85025; 81001; 71046; 70450; G0378 ×2; S0183; J2405 ×2

== ENCOUNTER → 2019-03-11 | Outpatient (CLI) | payer MEDICARE ==
--- NOTE | 2019-03-11 12:24 | FL ---
EXAMINATION TYPE: FL barium swallow DATE OF EXAM: 03/11/2019 CLINICAL HISTORY: Choking episodes predominantly with solid foods for months. TECHNIQUE: A double contrast esophagram is performed utilizing air and barium. A total of 68 second s of fluoroscopic time was utilized during procedure. 39 fluoroscopic images were saved. COMPARISON: None FINDINGS: The esophagus shows normal motility and emptying into the stomach other than very few terti eugenia contractions intermittently throughout the exam. No evidence of hiatal hernia or stricture noted . Posterior and inferolateral diverticula are seen at the level of the cervical thoracic junction. No significant gastroesophageal reflux was seen during real time performance of this study. IMPRESSION: 1. There are 2 esophageal diverticula with stasis of contrast throughout the exam one likely a Killia n Priyank diverticulum in the second likely a Zenker's diverticulum. 2. Findings most commonly related to mild presbyesophagus.
== END | disposition home or self-care (01) ==
LOC: RADUSWWP 10:58
PROVIDERS: ATTEND Internal Medicine
DX: K22.8 Other specified diseases of esophagus (principal); K22.5 Diverticulum of esophagus, acquired
CPT/HCPCS: 74220

== ENCOUNTER 2019-04-14 09:22 | Day surgery (SDC) | payer MEDICARE ==
[2019-04-09 10:16] VITALS: BMI 19.5
[~2019-04-14 09:22] MED LIST: LACTATED RINGERS 1,000 ML IV SCH; LIDOCAINE 1% (10MG/ML) FOR IV START INTRADERMA PRN
[2019-04-14 10:44] VITALS: TEMP 97.3
[2019-04-14] MEDS ORDERED: LIDOCAINE 1% INJ 10MG/ML (20 ML MDV) ONE (11:22)
[2019-04-14] MEDS ORDERED: PROPOFOL 10 MG/ML 20 ML VIAL IV ONE (11:22)
--- NOTE | 2019-04-14 11:32 | P.PCN ---
Date of Procedure: 04/14/19 Procedure(s) Performed: BRIEF HISTORY: Patient is a 84-year-old, pleasant, white female, scheduled for an upper endoscopy as a part of evaluation of intermittent dysphagia to solids for the last several months duration. She feels food gets stuck in her throat area PROCEDURE PERFORMED: Esophagogastroduodenoscopy. PREOPERATIVE DIAGNOSIS: Dysphagia to solids of several months duration. IV sedation per anesthesia. PROCEDURE: After informed consent was obtained, the patient was brought into the endoscopy unit. IV sedation was administered by Anesthesia under continuous monitoring. Initially the Olympus GIF-140 video endoscope was inserted into the mouth. Esophagus intubated without any difficulty. It was gradually advanced into the stomach and duodenum and carefully examined. The bulb and the second part of the duodenum appeared normal. The scope at this time was withdrawn to the stomach, adequately insufflated with air, and upon careful examination, mucosa of the antrum, body, cardia and the fundus appeared normal. The scope was then withdrawn into the esophagus. The GE junction was located at 39 cm from the incisors. Small sliding Hiatal hernia noted. The esophagus appeared normal. There were no erosions or ulcerations seen . The proximal cervical esophagus was carefully examined which appeared normal. However of the upper esophageal sphincter there was a 1 cm Zenker's diverticulum with small amount of retained food identified. The patient tolerated the procedure well. IMPRESSION: 1. 1 cm Zenker's diverticulum in the proximal cervical esophagus. 2. Small hiatal hernia. RECOMMENDATIONS: The findings of this examination were discussed with the patient as well as a family. She was advised to be on a soft diet. If she continues to have persistent dysphagia she may be a candidate for Z VINNIE for Zenker's diverticulum for which she needs to be referred to [facility]. Patient was advised to follow up in office if she has worsening symptoms.
[2019-04-14 12:02] VITALS: BP 125/67; PULSE 67; RESP 18
== END 2019-04-14 12:49 | disposition home or self-care (01) ==
LOC: ORWHC2ENDO 09:22
PROVIDERS: ATTEND Internal Medicine Gastroenterology
DX: K22.5 Diverticulum of esophagus, acquired (principal); K44.9 Diaphragmatic hernia without obstruction or gangrene; I10 Essential (primary) hypertension; E07.9 Disorder of thyroid, unspecified; I95.1 Orthostatic hypotension; K91.2 Postsurgical malabsorption, not elsewhere classified; D64.9 Anemia, unspecified; M19.90 Unspecified osteoarthritis, unspecified site; F32.9 Major depressive disorder, single episode, unspecified; G95.9 Disease of spinal cord, unspecified; Z88.1 Allergy status to other antibiotic agents; Z88.5 Allergy status to narcotic agent; Z91.040 Latex allergy status; Z86.718 Personal history of other venous thrombosis and embolism; Z79.82 Long term (current) use of aspirin; Z79.890 Hormone replacement therapy; Z79.899 Other long term (current) drug therapy; Z90.49 Acquired absence of other specified parts of digestive tract; Z90.710 Acquired absence of both cervix and uterus; Z85.038 Personal history of other malignant neoplasm of large intestine; Z98.890 Other specified postprocedural states; Z98.49 Cataract extraction status, unspecified eye
CPT/HCPCS: 43235; J2001; J2704

== ENCOUNTER 2021-08-09 05:10 | Emergency (ER) | payer MEDICARE ==
--- NOTE | 2021-08-09 05:56 | ED ---
Altered Mental Status HPI - General Chief Complaint: Altered Mental Status Stated Complaint: Confusion Time Seen by Provider: 08/09/21 05:24 Source: patient Mode of arrival: ambulatory Limitations: altered mental status - History of Present Illness Initial Comments: This patient is an 86-year-old woman brought to the emergency department for altered mental status. When I interview her she states that she is not able to remember that her is in the hospital. Patient denies other complaints. She states she is not able to remember what day it is. Family not present at initial history and physical and it is unclear how acute this condition has. The patient is denying other complaints. She is not having pain, dyspnea, alteration in urination or bowel movements. MD Complaint: confusion -: unknown Associated Symptoms: denies other symptoms - Related Data Home Medications Medication Instructions Recorded Confirmed Aspirin EC [Ecotrin Low Dose] 81 mg PO DAILY 04/07/15 04/14/19 Metoprolol Succinate [Toprol XL] 50 mg PO BID 04/07/15 04/14/19 Sertraline [Zoloft] 100 mg PO DAILY 04/07/15 04/14/19 Calcium Carbonate [Calcium] 600 mg PO DAILY 04/09/19 04/14/19 Levothyroxine Sodium [Synthroid] 100 mcg PO DAILY 04/09/19 04/14/19 Losartan Potassium [Cozaar] 100 mg PO DAILY 04/09/19 04/14/19 Vitamin C/Biotin [Hair, Skin and 1 tab PO DAILY 04/09/19 04/14/19 Nails] Zolpidem [Ambien] 10 mg PO HS PRN 04/09/19 04/14/19 Allergies Allergy/AdvReac Type Severity Reaction Status Date / Time ceftriaxone sodium Allergy Itching Verified 08/09/21 05:16 [From Rocephin] hydromorphone HCl Allergy Dyspnea Verified 08/09/21 05:16 [From Dilaudid] latex Allergy RASH AND Verified 08/09/21 05:16 SWELLING levofloxacin [From Levaquin] Allergy red Verified 08/09/21 05:16 streaks in iv vein morphine Allergy Dyspnea Verified 08/09/21 05:16 codeine AdvReac Rapid Verified 08/09/21 05:16 Heart Rate Review of Systems ROS Statement: Those systems with pertinent positive or pertinent negative responses have been documented in the HPI. ROS Other: All systems not noted in ROS Statement are negative. Constitutional: Denies: fever, chills Respiratory: Denies: cough, dyspnea Cardiovascular: Denies: chest pain, palpitations, syncope Gastrointestinal: Denies: abdominal pain, vomiting, diarrhea Genitourinary: Denies: dysuria, hematuria Musculoskeletal: Denies: back pain Skin: Denies: rash Neurological: Reports: confusion. Denies: headache, weakness, numbness Past Medical History Past Medical History: Cancer, Deep Vein Thrombosis (DVT), Hypertension, Osteoarthritis (OA), Thyroid Disorder Additional Past Medical History / Comment(s): hx bowel obstruction/colon cancer- 1991 with sx and chemotherapy,"short bowel syndrome/chronic diarrhea. dvt lt leg 2012, VARICOSE VEINS, cervical spondylosis with myelopathy, osteoporosis, rosacea, hx fall and fx jaw(not wired), hx Hepatitis, psoriasis. History of Any Multi-Drug Resistant Organisms: MRSA Date of last positivie culture/infection: 2011 MDRO Source:: LT GREAT TOE Past Surgical History: Bowel Resection, Cholecystectomy, Hysterectomy Additional Past Surgical History / Comment(s): rt rotator cuff repair 2 04/2014, colonoscopy, pain clinic procedures, multiple colon resections including colostomy reversal, cataracts Past Anesthesia/Blood Transfusion Reactions: No Reported Reaction Past Psychological History: No Psychological Hx Reported Past Alcohol Use History: Rare Past Drug Use History: None Reported - Past Family History Brother(s) Son(s) Family Medical History: Deep Vein Thrombosis (DVT) Additional Family Medical History / Comment(s): Patient has 4 sons and one has history of DVTs Daughter(s) Additional Family Medical History / Comment(s): Patient has one daughter that has Crohn's Sister(s) Family Medical History: Cancer Additional Family Medical History / Comment(s): She has 2 sisters and one has had breast cancer with metastatic disease and the second sister with with liver cancer. Father Family Medical History: Cancer Additional Family Medical History / Comment(s): Father at age 90 from inoperable bowel cancer Mother Family Medical History: Cancer Additional Family Medical History / Comment(s): Mother at age 81 from stomach cancer General Exam General appearance: alert, in no apparent distress Head exam: Present: atraumatic, normocephalic Eye exam: Present: normal appearance. Absent: scleral icterus, conjunctival injection ENT exam: Present: normal oropharynx Neck exam: Present: normal inspection, full ROM Respiratory exam: Present: normal lung sounds bilaterally. Absent: respiratory distress, wheezes, rales, rhonchi, stridor Cardiovascular Exam: Present: regular rate, normal rhythm, normal heart sounds. Absent: systolic murmur, diastolic murmur, rubs GI/Abdominal exam: Present: soft. Absent: distended, tenderness, guarding, rebound, rigid, mass Extremities exam: Present: normal inspection, normal capillary refill. Absent: pedal edema, calf tenderness Back exam: Present: normal inspection. Absent: CVA tenderness (R), CVA tender ness (L), vertebral tenderness Neurological exam: Present: alert, CN II-XII intact. Absent: oriented X3 (Patient is oriented to person, recognizes she is in the hospital, she is aware that his summer in 2021, not state the exact date), motor sensory deficit Psychiatric exam: Present: anxious Skin exam: Present: warm, dry, intact, normal color. Absent: rash Course Vital Signs 08/09/21 08/09/21 08/09/21 05:12 06:00 07:30 Temperature 98.3 F 98.1 F Pulse Rate 66 57 L 61 Respiratory 18 16 18 Rate Blood Pressure 166/64 140/63 138/57 O2 Sat by Pulse 96 96 98 Oximetry Medical Decision Making - Lab Data Result diagrams: 08/09/21 05:30 08/09/21 05:30 Lab Results 08/09/21 08/09/21 08/09/21 Range/Units 05:30 05:30 05:38 WBC 4.1 (3.8-10.6) k/uL RBC 3.87 (3.80-5.40) m/uL Hgb 11.7 (11.4-16.0) gm/dL Hct 36.6 (34.0-46.0) % MCV 94.5 (80.0-100.0) fL MCH 30.2 (25.0-35.0) pg MCHC 31.9 (31.0-37.0) g/dL RDW 13.0 (11.5-15.5) % Plt Count 193 (150-450) k/uL MPV 8.1 Neutrophils % (Manual) 76 % Lymphocytes % (Manual) 14 % Monocytes % (Manual) 8 % Eosinophils % (Manual) 2 % Neutrophils # (Manual) 3.12 (1.3-7.7) k/uL Lymphocytes # (Manual) 0.57 L (1.0-4.8) k/uL Monocytes # (Manual) 0.33 (0-1.0) k/uL Eosinophils # (Manual) 0.08 (0-0.7) k/uL Nucleated RBCs 0 (0-0) /100 WBC Manual Slide Review Performed RBC Morphology Normal PT 10.5 (9.0-12.0) sec INR 1.0 (<1.2) APTT 22.5 (22.0-30.0) sec Sodium 139 (137-145) mmol/L Potassium 4.2 (3.5-5.1) mmol/L Chloride 108 H (98-107) mmol/L Carbon Dioxide 27 (22-30) mmol/L Anion Gap 4 mmol/L BUN 16 (7-17) mg/dL Creatinine 0.74 (0.52-1.04) mg/dL Est GFR (CKD-EPI)AfAm 84 (>60 ml/min/1.73 sqM) Est GFR (CKD-EPI)NonAf 73 (>60 ml/min/1.73 sqM) Glucose 96 (74-99) mg/dL Calcium 9.2 (8.4-10.2) mg/dL Total Bilirubin 0.7 (0.2-1.3) mg/dL AST 21 (14-36) U/L ALT 11 (4-34) U/L Alkaline Phosphatase 60 (38-126) U/L Troponin I (0.000-0.034) ng/mL Total Protein 5.9 L (6.3-8.2) g/dL Albumin 3.7 (3.5-5.0) g/dL Serum Alcohol <10 mg/dL 08/09/21 Range/Units 05:38 WBC (3.8-10.6) k/uL RBC (3.80-5.40) m/uL Hgb (11.4-16.0) gm/dL Hct (34.0-46.0) % MCV (80.0-100.0) fL MCH (25.0-35.0) pg MCHC (31.0-37.0) g/dL RDW (11.5-15.5) % Plt Count (150-450) k/uL MPV Neutrophils % (Manual) % Lymphocytes % (Manual) % Monocytes % (Manual) % Eosinophils % (Manual) % Neutrophils # (Manual) (1.3-7.7) k/uL Lymphocytes # (Manual) (1.0-4.8) k/uL Monocytes # (Manual) (0-1.0) k/uL Eosinophils # (Manual) (0-0.7) k/uL Nucleated RBCs (0-0) /100 WBC Manual Slide Review RBC Morphology PT (9.0-12.0) sec INR (<1.2) APTT (22.0-30.0) sec Sodium (137-145) mmol/L Potassium (3.5-5.1) mmol/L Chloride (98-107) mmol/L Carbon Dioxide (22-30) mmol/L Anion Gap mmol/L BUN (7-17) mg/dL Creatinine (0.52-1.04) mg/dL Est GFR (CKD-EPI)AfAm (>60 ml/min/1.73 sqM) Est GFR (CKD-EPI)NonAf (>60 ml/min/1.73 sqM) Glucose (74-99) mg/dL Calcium (8.4-10.2) mg/dL Total Bilirubin (0.2-1.3) mg/dL AST (14-36) U/L ALT (4-34) U/L Alkaline Phosphatase (38-126) U/L Troponin I 0.014 (0.000-0.034) ng/mL Total Protein (6.3-8.2) g/dL Albumin (3.5-5.0) g/dL Serum Alcohol mg/dL - EKG Data -: EKG Interpreted by Ca EKG shows normal: sinus rhythm, axis (Normal), intervals (Normal), QRS complexes (Normal), ST-T waves (Normal) Rate: normal (Rate 65 bpm) Interpretation: normal EKG Disposition Clinical Impression: Altered mental status Disposition: HOME SELF-CARE Condition: Good Instructions (If sedation given, give patient instructions): Altered Mental Status (ED) Is patient prescribed a controlled substance at d/c from ED?: No Referrals: Damir Beltran MD [Primary Care Provider] - 1-2 days
--- NOTE | 2021-08-09 06:10 | XR ---
EXAM: XR Chest, 1 View CLINICAL HISTORY: ITS.REASON XR Reason: altered mental status TECHNIQUE: Frontal view of the chest. COMPARISON: 12/26/17 FINDINGS: Lungs: Mild streaky density in the left lung base, likely chronic. Pleural space: Unremarkable. No pneumothorax. Heart: Unremarkable. No cardiomegaly. Mediastinum: Unremarkable. Bones/joints: Unremarkable. IMPRESSION: 1. No significant change. 2. No acute disease.
[2021-08-09 06:18] LABS: Partial Thromboplastin Time 22.5 sec (22.0-30.0); Prothrombin Time 10.5 sec (9.0-12.0)
[2021-08-09 06:19] LABS: ALT 11 U/L (4-34); AST 21 U/L (14-36); African American GFR (CKD) 84 (>60 ml/min/1.73 sqM); Albumin 3.7 g/dL (3.5-5.0); Alcohol <10 mg/dL; Alkaline Phosphatase 60 U/L (38-126); Anion Gap 4 mmol/L; Blood Urea Nitrogen 16 mg/dL (7-17); Calcium 9.2 mg/dL (8.4-10.2); Carbon Dioxide 27 mmol/L (22-30); Chloride 108 mmol/L (98-107); Glucose 96 mg/dL (74-99); Non-African American GFR(CKD) 73 (>60 ml/min/1.73 sqM); Potassium 4.2 mmol/L (3.5-5.1); Sodium 139 mmol/L (137-145); Total Bilirubin 0.7 mg/dL (0.2-1.3); Total Protein 5.9 g/dL (6.3-8.2)
[2021-08-09 06:26] LABS: HCT 36.6 % (34.0-46.0); HGB 11.7 gm/dL (11.4-16.0); MCH 30.2 pg (25.0-35.0); MCHC 31.9 g/dL (31.0-37.0); MCV 94.5 fL (80.0-100.0); Mean Platelet Volume 8.1; Platelet Count 193 k/uL (150-450); RBC 3.87 m/uL (3.80-5.40); WBC 4.1 k/uL (3.8-10.6)
--- NOTE | 2021-08-09 06:33 | CT ---
EXAM: CT Head Without Intravenous Contrast CLINICAL HISTORY: ITS.REASON CT Reason: Altered mental status TECHNIQUE: Axial computed tomography images of the head/brain without intravenous contrast. CTDI is 49.1 mGy and DLP is 1099.4 mGy-cm. This CT exam was performed using one or more of the following dose reduction techniques: automated exposure control, adjustment of the mA and/or kV according to patient size, and/or use of iterative reconstruction technique. COMPARISON: 12/27/17 FINDINGS: Brain: Mild atrophy. Mild periventricular hypodensities likely chronic small vessel ischemic change. No hemorrhage. Ventricles: Unremarkable. No ventriculomegaly. Bones/joints: Unremarkable. No acute fracture. Soft tissues: Unremarkable. Sinuses: Unremarkable as visualized. No acute sinusitis. Mastoid air cells: Mild opacification in the left mastoid air cells. IMPRESSION: 1. No acute intracranial abnormality. 2. Mild atrophy and chronic small vessel ischemic change
[2021-08-09 07:06] LABS: Eosinophils # (M) 0.08 k/uL (0-0.7); Lymphocytes # (M) 0.57 k/uL (1.0-4.8); Monocytes # (M) 0.33 k/uL (0-1.0); Neutrophils # (M) 3.12 k/uL (1.3-7.7); Neutrophils % (M) 76 %; Nucleated Red Blood Cells 0 /100 WBC (0-0); Total Cells Counted 100
[2021-08-09 07:07] LABS: RBC Morphology Normal
[2021-08-09 07:31] VITALS: PULSE 61
[2021-08-09 09:15] LABS: Amorphous Sediment,Urine Rare /hpf; Appearance,Urine Clear (Clear); Bacteria,Urine Rare /hpf; Bilirubin,Urine Negative (Negative); Blood,Urine Negative (Negative); Color,Urine Yellow; Glucose,Urine (UA) Negative (Negative); Ketones,Urine Negative (Negative); Leukocyte Esterase,Urine Trace (Negative); Mucus,Urine Rare /hpf; Nitrite,Urine Negative (Negative); Protein,Urine Negative (Negative); Specific Gravity,Urine 1.012 (1.001-1.035); Squamous Epithelial Cell,Urine 1 /hpf (0-4); WBC,Urine 1 /hpf (0-5)
[2021-08-09 10:43] VITALS: BP 133/56; RESP 16; TEMP 99.8
== END 2021-08-09 10:45 | disposition home or self-care (01) ==
LOC: EC 05:10
DX: R41.82 Altered mental status, unspecified (principal); I10 Essential (primary) hypertension; E07.9 Disorder of thyroid, unspecified; Z79.899 Other long term (current) drug therapy; Z91.040 Latex allergy status; Z88.5 Allergy status to narcotic agent; Z88.1 Allergy status to other antibiotic agents
CPT/HCPCS: 36415; 93005; 80053; 84484; 85025; 85610; 85730; 81001; 71045; 70450; 99285; G0480; 80320

== ENCOUNTER → 2022-01-21 | Outpatient (CLI) | payer MEDICARE ==
--- NOTE | 2022-01-21 20:04 | CT ---
EXAMINATION TYPE: CT brain wo con DATE OF EXAM: 01/21/2022 HISTORY: c/o dizziness. Other amnesia. CT DLP: 1213 mGycm. Automated Exposure Control for Dose Reduction was Utilized. TECHNIQUE: CT scan of the head is performed without contrast. COMPARISON: CT brain August 09, 2021. FINDINGS: There is no acute intracranial hemorrhage or midline shift identified. There is mild diff use ventricular and sulcal prominence consistent with diffuse age-related cerebral atrophy redemonstr ated. There is mild to moderate low-attenuation in the periventricular white matter consistent with chronic small vessel ischemic change redemonstrated. Nasal septum remains deviated to right of midli ne. The globes are intact and the visualized sinuses are clear. IMPRESSION: No acute intracranial hemorrhage or midline shift. There is mild diffuse age-related ce rebral atrophy and [id number] chronic small vessel ischemic change redemonstrated. No significa nt change from prior CT.
== END | disposition home or self-care (01) ==
LOC: RADCTMAIN 16:25
PROVIDERS: ATTEND Internal Medicine
DX: G31.1 Senile degeneration of brain, not elsewhere classified (principal); I67.82 Cerebral ischemia; R41.3 Other amnesia
CPT/HCPCS: 70450

== ENCOUNTER 2022-07-29 10:51 | Emergency (ER) | payer MEDICARE ==
--- NOTE | 2022-07-29 11:03 | ED ---
General Adult HPI - General Chief complaint: Fall Stated complaint: fall Time Seen by Provider: 07/29/22 10:54 - History of Present Illness Initial comments: 87-year-old female with no significant past medical history presents to the emergency department via EMS with a chief complaint of fall. EMS reports the patient was walking out of the doctor's office when she tripped and fell. She is reporting swelling in her left shoulder and left side of her head. She is unsure if she lost consciousness. She reports that she takes a daily baby aspirin. She denies venous, lightheadedness, headache vision loss or vision changes. - Related Data Home Medications Medication Instructions Recorded Confirmed Aspirin EC [Ecotrin Low Dose] 81 mg PO DAILY 04/07/15 07/29/22 Metoprolol Succinate [Toprol XL] 50 mg PO BID 04/07/15 07/29/22 Levothyroxine Sodium [Synthroid] 100 mcg PO DAILY 04/09/19 07/29/22 Losartan Potassium [Cozaar] 0.5 tab PO BID 04/09/19 07/29/22 Zolpidem [Ambien] 10 mg PO HS 04/09/19 07/29/22 Sertraline [Zoloft] 50 mg PO DAILY 07/29/22 07/29/22 Allergies Allergy/AdvReac Type Severity Reaction Status Date / Time ceftriaxone sodium Allergy Itching Verified 07/29/22 12:46 [From Rocephin] hydromorphone HCl Allergy Dyspnea Verified 07/29/22 12:46 [From Dilaudid] latex Allergy RASH AND Verified 07/29/22 12:46 SWELLING levofloxacin [From Levaquin] Allergy red Verified 07/29/22 12:46 streaks in iv vein morphine Allergy Dyspnea Verified 07/29/22 12:46 codeine AdvReac Rapid Verified 07/29/22 12:46 Heart Rate Review of Systems ROS Statement: Those systems with pertinent positive or pertinent negative responses have been documented in the HPI. ROS Other: All systems not noted in ROS Statement are negative. Past Medical History Past Medical History: Cancer, Deep Vein Thrombosis (DVT), Hypertension, Osteoarthritis (OA), Thyroid Disorder Additional Past Medical History / Comment(s): hx bowel obstruction/colon cancer- 1991 with sx and chemotherapy,"short bowel syndrome/chronic diarrhea. dvt lt leg 2012, VARICOSE VEINS, cervical spondylosis with myelopathy, osteoporosis, rosacea, hx fall and fx jaw(not wired), hx Hepatitis, psoriasis. History of Any Multi-Drug Resistant Organisms: MRSA Date of last positivie culture/infection: 2011 MDRO Source:: LT GREAT TOE Past Surgical History: Bowel Resection, Cholecystectomy, Hysterectomy Additional Past Surgical History / Comment(s): rt rotator cuff repair 2 04/2014, colonoscopy, pain clinic procedures, multiple colon resections including colostomy reversal, cataracts Past Anesthesia/Blood Transfusion Reactions: No Reported Reaction Past Psychological History: No Psychological Hx Reported Past Alcohol Use History: Rare Past Drug Use History: None Reported - Past Family History Brother(s) Son(s) Family Medical History: Deep Vein Thrombosis (DVT) Additional Family Medical History / Comment(s): Patient has 4 sons and one has history of DVTs Daughter(s) Additional Family Medical History / Comment(s): Patient has one daughter that has Crohn's Sister(s) Family Medical History: Cancer Additional Family Medical History / Comment(s): She has 2 sisters and one has had breast cancer with metastatic disease and the second sister with with liver cancer. Father Family Medical History: Cancer Additional Family Medical History / Comment(s): Father at age 90 from inoperable bowel cancer Mother Family Medical History: Cancer Additional Family Medical History / Comment(s): Mother at age 81 from stomach cancer General Exam - General Exam Comments Initial Comments: General: Alert, in no acute distress Head: atraumatic normocephalic. Eyes PERRL, EOMI intact, mucous membranes moist Respiratory: Lungs clear to auscultation bilaterally Cardiovascular: Regular rate and rhythm Abdominal: Soft without guarding or rebound Extremities: Normal inspection with full range of motion and normal capillary refill , left shoulder with full range of motion. No crepitus noted. No evidence of ecchymosis. Neuroogic: alert and oriented 3, CN II-XII intact, able to ambulate with steady gait Skin: warm dry and intact with normal color Course Vital Signs 07/29/22 07/29/22 10:59 13:41 Temperature 98.8 F 98.1 F Pulse Rate 55 L 65 Respiratory 18 16 Rate Blood Pressure 148/73 140/57 O2 Sat by Pulse 99 98 Oximetry Medical Decision Making - Medical Decision Making Was pt. sent in by a medical professional or institution (TIM Hawkins, MECHANICAL ENGINEERING PROFESSOR, urgent care, hospital, or [facility]...) When possible be specific @ -[No] Did you speak to anyone other than the patient for history (EMS, parent, family, police, friend...)? What history was obtained from this source @ -[No] Did you review nursing and triage notes (agree or disagree)? Why? @ -[I reviewed and agree with nursing and triage notes] Were old charts reviewed (outside hosp., previous admission, EMS record, old EKG, old radiological studies, urgent care reports/EKG's, [facility] records)? Report findings @ -[No old charts were reviewed] Differential Diagnosis (chest pain, altered mental status, abdominal pain women, abdominal pain men, vaginal bleeding, weakness, fever, dyspnea, syncope, headache, dizziness, GI bleed, back pain, seizure, CVA, palpatations, mental health, musculoskeletal)? @ -[not applicable] EKG interpreted by me (3pts min.). @ -[As above] X-rays interpreted by me (1pt min.). @ -Left shoulder x-ray and left wrist x-ray negative for any evidence of fracture or dislocation. CT interpreted by me (1pt min.). @ -CT head and neck negative for any evidence of fracture dislocation U/S interpreted by me (1pt. min.). @ -[None done] What testing was considered but not performed or refused? (CT, X-rays, U/S, labs)? Why? @ -[None] What meds were considered but not given or refused? Why? @ -[None] Did you discuss the management of the patient with other professionals (professionals i.e. TIM Hawkins, MECHANICAL ENGINEERING PROFESSOR, lab, RT, psych nurse, social service technician, electronic instrument trades worker, teacher, branch officer, pillowcase cleaner)? Give summary @ -[No] Was smoking cessation discussed for >3mins.? @ -[No] Was critical care preformed (if so, how long)? @ -[No] Were there social determinants of health that impacted care today? How? (Homelessness, low income, unemployed, alcoholism, drug addiction, transportation, low edu. Level, literacy, decrease access to med. care, shelter, rehab)? @ -[No] Was there de-escalation of care discussed even if they declined (Discuss DNR or withdrawal of care, Hospice)? DNR status @ -[No] What co-morbidities impacted this encounter? (DM, HTN, Smoking, COPD, CAD, Cancer, CVA, ARF, Chemo, Hep., AIDS, mental health diagnosis, sleep apnea, morbid obesity)? @ -[None] Was patient admitted / discharged? Hospital course, mention meds given and route, prescriptions, significant lab abnormalities, going to OR and other pertinent info. @ --Discharged. This is a 87-year-old female who presents to the emergency department with fall. Patient had a thorough history and physical exam performed while in the ED. Physical exam is essentially unremarkable heart rate regular rate and rhythm, lungs clear to auscultation bilaterally, abdomen soft non-tender. Patient able to move all extremities freely. Able to ambulate with a steady gait. Patient had lab work and imaging performed which were essentially unremarkable.. I discussed results in detail with the patient who verbalized understanding and all questions were addressed. She was given Tylenol with symptomatic relief. Return precautions were discussed at length. The patient was discharged in stable condition. Discussed with MICHEL Guillen who agrees with plan of care Undiagnosed new problem with uncertain prognosis? @ -[No] Drug Therapy requiring intensive monitoring for toxicity (Heparin, Nitro, Insulin, Cardizem)? @ -[No] Were any procedures done? @ -[No] Diagnosis/symptom? @ -Fall - Left shoulder pain - Left wrist pain Acute, or Chronic, or Acute on Chronic? @ -Acute Uncomplicated (without systemic symptoms) or Complicated (systemic symptoms)? @ -Uncomplicated Side effects of treatment? @ -[No] Exacerbation, Progression, or Severe Exacerbation? @ -[No] Poses a threat to life or bodily function? How? (Chest pain, USA, SD, pneumonia, PE, COPD, DKA, ARF, appy, cholecystitis, CVA, Diverticulitis, Homicidal, Suicidal, threat to staff... and all critical care pts) @ -Low likelihood Disposition Clinical Impression: Fall, Left wrist pain, Left shoulder pain Disposition: HOME SELF-CARE Condition: Stable Instructions (If sedation given, give patient instructions): Fall Prevention (ED) Additional Instructions: Please return to the nearest emergency department if symptoms worsen or persist Is patient prescribed a controlled substance at d/c from ED?: No Referrals: Damir Beltran MD [Primary Care Provider] - 1-2 days Time of Disposition: 12:39
--- NOTE | 2022-07-29 11:52 | CT ---
EXAMINATION TYPE: CT brain cspine wo con DATE OF EXAM: 07/29/2022 COMPARISON: CT brain January 21, 2022. CT cervical spine 2016 HISTORY: Fall, did hit head with neck pain. CT DLP: 1382.1 mGycm. Automated Exposure Control for Dose Reduction was Utilized. TECHNIQUE: CT scan of the head and cervical spine are performed without contrast. FINDINGS: There is no acute intracranial hemorrhage or midline shift identified. Mild to moderate v entricular and sulcal prominence. Mild to moderate low-attenuation in the deep and periventricular wh ite matter. The calvarium is intact. The globes are intact and the visualized sinuses are clear. Nasa l septum is deviated to right of midline. Cervical spine is visualized in its entirety from C1 through upper thoracic levels and redemonstrates grade 1 retrolisthesis C3 on C4 and C4 on C5. No acute displaced fracture is seen. Prevertebral sof t tissue appears within normal limits. The C1-C2 articulation is within normal limits on the coronal images. Vertebral body heights are maintained. Moderate disc space narrowing C3-C4 through C5-C6 le vels is redemonstrated. Posterior spur disc complexes efface the anterior thecal sac at these levels on sagittal and axial images. Axial images show multilevel uncovertebral and facet degenerative martins es causing multilevel bilateral neural foraminal narrowing. Lung apices show no pneumothorax. IMPRESSION: 1. There is no acute fracture or dislocation evident in the cervical spine. 2. No acute intracranial hemorrhage or midline shift is seen.
--- NOTE | 2022-07-29 12:02 | XR ---
EXAMINATION TYPE: XR shoulder complete LT DATE OF EXAM: 07/29/2022 CLINICAL HISTORY: Pain after fall TECHNIQUE: Three views of the left shoulder are obtained. COMPARISON: None. FINDINGS: Osseous structures are demineralized which is noted to lower radiographic sensitivity. Ther e is no acute fracture/dislocation evident in the left shoulder. Moderate narrowing at the acromiocla vicular joint. Some narrowing and spurring at the glenohumeral joint. The visualized ribs are intact and unremarkable. IMPRESSION: There is no acute fracture or dislocation in the left shoulder.
--- NOTE | 2022-07-29 12:03 | XR ---
EXAMINATION TYPE: XR wrist complete LT DATE OF EXAM: 07/29/2022 CLINICAL HISTORY: Pain. TECHNIQUE: Frontal, lateral and oblique images of the left wrist are obtained. There is fourth scaph oid view. COMPARISON: None FINDINGS: Osseous structures are demineralized which is noted to lower radiographic sensitivity. The re is no acute fracture/dislocation evident in the left wrist. The carpal joint spaces are maintaine d. The overlying soft tissue appears unremarkable. IMPRESSION: As above.
[2022-07-29] MEDS ORDERED: KETOROLAC 15 MG/ML 1 ML VIAL IVP STA (12:20)
[2022-07-29] MEDS ORDERED: ACETAMINOPHEN TAB 325 MG TAB PO STA (12:38)
[2022-07-29 13:45] VITALS: BP 140/57; PULSE 65; RESP 16; TEMP 98.1
== END 2022-07-29 13:59 | disposition home or self-care (01) ==
LOC: EC 10:51
DX: M25.532 Pain in left wrist (principal); M25.512 Pain in left shoulder; I10 Essential (primary) hypertension; M19.90 Unspecified osteoarthritis, unspecified site; M81.0 Age-related osteoporosis without current pathological fracture; Z86.718 Personal history of other venous thrombosis and embolism; Z88.5 Allergy status to narcotic agent; Z91.040 Latex allergy status; Z88.1 Allergy status to other antibiotic agents; Z88.8 Allergy status to other drugs, medicaments and biological substances; Z79.82 Long term (current) use of aspirin; Z79.890 Hormone replacement therapy; Z79.899 Other long term (current) drug therapy; W01.0XXA Fall on same level from slipping, tripping and stumbling without subsequent striking against object, initial encounter; Y93.01 Activity, walking, marching and hiking
CPT/HCPCS: 70450; 72125; 99284

== ENCOUNTER 2022-10-08 02:54 | Emergency (ER) | payer MEDICARE ==
--- NOTE | 2022-10-08 03:46 | ED ---
Abdominal Pain HPI - General Source: patient, family Mode of arrival: EMS Limitations: no limitations - History of Present Illness MD Complaint: abdominal pain Onset/Timin -: hour(s) Location: diffuse Radiation: none Migration to: no migration Severity: severe Quality: cramping, sharp, burning Consistency: constant Improves With: nothing Worsens With: nothing Associated Symptoms: nausea, vomiting <Corey Phoenix - Last Filed: 10/08/22 07:47> <Paul Arreola - Last Filed: 10/08/22 09:13> - General Chief Complaint: Abdominal Pain Stated Complaint: Nausea,Vomiting Time Seen by Provider: 10/08/22 03:21 - History of Present Illness Initial Comments: This patient is an 87-year-old woman who presents with complaint of worsening diffuse abdominal pain associated with nausea. Patient states that it has come on over the course of the last evening into tonight. She has not noted worsening or relieving factors. She did have vomiting 4 times, states that the last 2 times appeared to be with bile. No blood or coffee-ground emesis. Patient states that her last bowel movement was early in the day yesterday and was not remarkable to her. No change in urination. She has not noted fever or chills. Patient did have a colostomy proximally 30 years ago when she was living in [place] for colon cancer. She subsequently had takedown of the colostomy. (Corey Phoenix) - Related Data Home Medications Medication Instructions Recorded Confirmed Aspirin EC [Ecotrin Low Dose] 81 mg PO DAILY 04/07/15 07/29/22 Metoprolol Succinate [Toprol XL] 50 mg PO BID 04/07/15 07/29/22 Levothyroxine Sodium [Synthroid] 100 mcg PO DAILY 04/09/19 07/29/22 Losartan Potassium [Cozaar] 0.5 tab PO BID 04/09/19 07/29/22 Zolpidem [Ambien] 10 mg PO HS 04/09/19 07/29/22 Sertraline [Zoloft] 50 mg PO DAILY 07/29/22 07/29/22 Allergies Allergy/AdvReac Type Severity Reaction Status Date / Time ceftriaxone sodium Allergy Itching Verified 10/08/22 03:16 [From Rocephin] hydromorphone HCl Allergy Dyspnea Verified 10/08/22 03:16 [From Dilaudid] latex Allergy RASH AND Verified 10/08/22 03:16 SWELLING levofloxacin [From Levaquin] Allergy red Verified 10/08/22 03:16 streaks in iv vein morphine Allergy Dyspnea Verified 10/08/22 03:16 codeine AdvReac Rapid Verified 10/08/22 03:16 Heart Rate Review of Systems ROS Other: All systems not noted in ROS Statement are negative. Constitutional: Denies: fever, chills Respiratory: Denies: cough, dyspnea Cardiovascular: Denies: chest pain, palpitations, edema Gastrointestinal: Reports: abdominal pain, nausea, vomiting. Denies: diarrhea, constipation, hematemesis, melena, hematochezia Genitourinary: Denies: dysuria, hematuria Musculoskeletal: Denies: back pain Skin: Denies: rash Neurological: Denies: headache, weakness <Corey Phoenix - Last Filed: 10/08/22 07:47> ROS Other: All systems not noted in ROS Statement are negative. <Paul Arreola - Last Filed: 10/08/22 09:13> ROS Statement: Those systems with pertinent positive or pertinent negative responses have been documented in the HPI. Past Medical History Past Medical History: Cancer, Deep Vein Thrombosis (DVT), Hypertension, Osteoarthritis (OA), Thyroid Disorder Additional Past Medical History / Comment(s): hx bowel obstruction/colon cancer- 1991 with sx and chemotherapy,"short bowel syndrome/chronic diarrhea. dvt lt leg 2012, VARICOSE VEINS, cervical spondylosis with myelopathy, osteoporosis, rosacea, hx fall and fx jaw(not wired), hx Hepatitis, psoriasis. History of Any Multi-Drug Resistant Organisms: MRSA Date of last positivie culture/infection: 2011 MDRO Source:: LT GREAT TOE Past Surgical History: Bowel Resection, Cholecystectomy, Hysterectomy Additional Past Surgical History / Comment(s): rt rotator cuff repair 2 04/2014, colonoscopy, pain clinic procedures, multiple colon resections including colostomy reversal, cataracts Past Anesthesia/Blood Transfusion Reactions: No Reported Reaction Past Psychological History: No Psychological Hx Reported Past Alcohol Use History: Rare Past Drug Use History: None Reported - Past Family History Brother(s) Son(s) Family Medical History: Deep Vein Thrombosis (DVT) Additional Family Medical History / Comment(s): Patient has 4 sons and one has history of DVTs Daughter(s) Additional Family Medical History / Comment(s): Patient has one daughter that has Crohn's Sister(s) Family Medical History: Cancer Additional Family Medical History / Comment(s): She has 2 sisters and one has had breast cancer with metastatic disease and the second sister with with liver cancer. Father Family Medical History: Cancer Additional Family Medical History / Comment(s): Father at age 90 from inoperable bowel cancer Mother Family Medical History: Cancer Additional Family Medical History / Comment(s): Mother at age 81 from stomach cancer <Corey Phoenix - Last Filed: 10/08/22 07:47> General Exam Limitations: no limitations General appearance: alert, in no apparent distress Head exam: Present: atraumatic, normocephalic Eye exam: Present: normal appearance. Absent: scleral icterus, conjunctival injection ENT exam: Present: normal oropharynx Neck exam: Present: normal inspection Respiratory exam: Present: normal lung sounds bilaterally. Absent: respiratory distress, wheezes, rales, rhonchi, stridor Cardiovascular Exam: Present: regular rate, normal rhythm, normal heart sounds. Absent: systolic murmur, diastolic murmur, rubs, gallop GI/Abdominal exam: Present: soft, tenderness, bruit. Absent: distended, guarding, rebound, rigid, mass, pulsatile mass, hernia Extremities exam: Present: normal inspection, normal capillary refill. Absent: pedal edema, calf tenderness Back exam: Present: normal inspection. Absent: CVA tenderness (R), CVA tenderness (L) Neurological exam: Present: alert Skin exam: Present: warm, dry, intact, normal color. Absent: rash <ShoCorey kenyon - Last Filed: 10/08/22 07:47> Course Vital Signs 10/08/22 10/08/22 10/08/22 03:06 03:11 03:17 Temperature 99.2 F 99.2 F Pulse Rate 68 66 66 Respiratory 16 18 18 Rate Blood Pressure 143/62 143/62 O2 Sat by Pulse 95 95 95 Oximetry 10/08/22 10/08/22 10/08/22 04:00 05:00 06:00 Temperature Pulse Rate 68 67 67 Respiratory 16 16 16 Rate Blood Pressure 140/63 143/62 140/60 O2 Sat by Pulse 97 93 L 94 L Oximetry 10/08/22 10/08/22 07:00 07:33 Temperature Pulse Rate 64 71 Respiratory 16 16 Rate Blood Pressure 138/64 130/49 O2 Sat by Pulse 96 91 L Oximetry Medical Decision Making - Lab Data Result diagrams: 10/08/22 03:21 <Corey Phoenix - Last Filed: 10/08/22 07:47> - Lab Data Result diagrams: 10/08/22 08:34 10/08/22 03:21 <Paul Arreola Abdelrahman - Last Filed: 10/08/22 09:13> - Medical Decision Making Was pt. sent in by a medical professional or institution (, PA, [employer], urgent care, hospital, or skilled nursing...) When possible be specific @ -No Did you speak to anyone other than the patient for history (EMS, parent, family, police, friend...)? What history was obtained from this source @ -No Did you review nursing and triage notes (agree or disagree)? Why? @ -I reviewed and agree with nursing and triage notes Were old charts reviewed (outside hosp., previous admission, EMS record, old EKG, old radiological studies, urgent care reports/EKG's, skilled nursing records)? Report findings @ -No old charts were reviewed Differential Diagnosis (chest pain, altered mental status, abdominal pain women, abdominal pain men, vaginal bleeding, weakness, fever, dyspnea, syncope, headache, dizziness, GI bleed, back pain, seizure, CVA, palpatations, mental health, musculoskeletal)? @ -Differential Abdominal Pain Women: Appendicitis, Cholecystitis, diverticulosis, ischemic bowel, pancreatitis, hepatitis, UTI, gastroenteritis, AAA, incarcerated hernia, bowel obstruction, constipation, inflammatory bowel, hepatitis, peptic ulcer disease, splenic infarction, perforated viscus, vulvitis, ovarian torsion, PID, kidney stone, placenta abruption, this is not meant to be an all-inclusive list EKG interpreted by me (3pts min.). @ -As above X-rays interpreted by me (1pt min.). @ -None done CT interpreted by me (1pt min.). @ -CT showing enteritis, colitis U/S interpreted by me (1pt. min.). @ -None done What testing was considered but not performed or refused? (CT, X-rays, U/S, labs)? Why? @ -None What meds were considered but not given or refused? Why? @ -None Did you discuss the management of the patient with other professionals (professionals i.e. , PA, [employer], lab, RT, psych nurse, social media marketing manager, aluminum can collector, teacher, hydrological technical officer, special education case manager)? Give summary @ -No Was smoking cessation discussed for >3mins.? @ -No Was critical care preformed (if so, how long)? @ -No Were there social determinants of health that impacted care today? How? (Homelessness, low income, unemployed, alcoholism, drug addiction, transportation, low edu. Level, literacy, decrease access to med. care, intermediate, rehab)? @ -No Was there de-escalation of care discussed even if they declined (Discuss DNR or withdrawal of care, Hospice)? DNR status @ -No What co-morbidities impacted this encounter? (DM, HTN, Smoking, COPD, CAD, Cancer, CVA, ARF, Chemo, Hep., AIDS, mental health diagnosis, sleep apnea, morbid obesity)? @ -Previous bowel surgery, colostomy with reversal in the remote past Was patient admitted / discharged? Hospital course, mention meds given and route, prescriptions, significant lab abnormalities, going to OR and other pertinent info. @ Patient's care was signed out at shift change awaiting CT results. CT does show an enteritis, colitis. Patient reevaluated she is resting comfortably without any pain, no vomiting. I did offer observation for symptomatic treatment however the patient declines and prefers to be discharged. Undiagnosed new problem with uncertain prognosis? @ -No Drug Therapy requiring intensive monitoring for toxicity (Heparin, Nitro, Insulin, Cardizem)? @ -No Were any procedures done? @ -No Diagnosis/symptom? @ Abdominal pain, enteritis Acute, or Chronic, or Acute on Chronic? @ -Acute Uncomplicated (without systemic symptoms) or Complicated (systemic symptoms)? @ -default Side effects of treatment? @ -No Exacerbation, Progression, or Severe Exacerbation? @ -No Poses a threat to life or bodily function? How? (Chest pain, USA, GA, pneumonia, PE, COPD, DKA, ARF, appy, cholecystitis, CVA, Diverticulitis, Homicidal, Suicidal, threat to staff... and all critical care pts) @ -Low risk at this time (Paul Arreola) - Lab Data Lab Results 10/08/22 10/08/22 10/08/22 Range/Units 03:21 03:41 08:34 WBC 5.6 (3.8-10.6) k/uL RBC 3.46 L (3.80-5.40) m/uL Hgb 11.1 L (11.4-16.0) gm/dL Hct 32.5 L (34.0-46.0) % MCV 94.0 (80.0-100.0) fL MCH 32.1 (25.0-35.0) pg MCHC 34.2 (31.0-37.0) g/dL RDW 14.7 (11.5-15.5) % Plt Count 150 (150-450) k/uL MPV 7.9 Neutrophils % 73 % Lymphocytes % 12 % Monocytes % 11 % Eosinophils % 1 % Basophils % 0 % Neutrophils # 4.1 (1.3-7.7) k/uL Lymphocytes # 0.7 L (1.0-4.8) k/uL Monocytes # 0.6 (0-1.0) k/uL Eosinophils # 0.0 (0-0.7) k/uL Basophils # 0.0 (0-0.2) k/uL Sodium 137 (137-145) mmol/L Potassium 3.7 (3.5-5.1) mmol/L Chloride 109 H (98-107) mmol/L Carbon Dioxide 24 (22-30) mmol/L Anion Gap 4 mmol/L BUN 12 (7-17) mg/dL Creatinine 0.57 (0.52-1.04) mg/dL Est GFR (CKD-EPI)AfAm >90 (>60 ml/min/1.73 sqM) Est GFR (CKD-EPI)NonAf 83 (>60 ml/min/1.73 sqM) Glucose 89 (74-99) mg/dL Plasma Lactic Acid Marino 0.9 (0.7-2.0) mmol/L Calcium 7.9 L (8.4-10.2) mg/dL Total Bilirubin 1.4 H (0.2-1.3) mg/dL AST 34 (14-36) U/L ALT 15 (4-34) U/L Alkaline Phosphatase 59 (38-126) U/L C-Reactive Protein <0.5 (<1.0) mg/dL Total Protein 5.9 L (6.3-8.2) g/dL Albumin 3.5 (3.5-5.0) g/dL Amylase 81 (30-110) U/L Lipase 67 (23-300) U/L Disposition <Corey Phoenix - Last Filed: 10/08/22 07:47> Is patient prescribed a controlled substance at d/c from ED?: No Time of Disposition: 09:13 <Paul Arreola - Last Filed: 10/08/22 09:13> Clinical Impression: Abdominal pain Disposition: HOME SELF-CARE Condition: Fair Instructions (If sedation given, give patient instructions): Abdominal Pain (ED) Referrals: Damir Beltran MD [Primary Care Provider] - 1-2 days
[2022-10-08 04:31] LABS: ALT 15 U/L (4-34); African American GFR (CKD) >90 (>60 ml/min/1.73 sqM); Albumin 3.5 g/dL (3.5-5.0); Amylase 81 U/L (30-110); Anion Gap 4 mmol/L; Blood Urea Nitrogen 12 mg/dL (7-17); C Reactive Protein <0.5 mg/dL (<1.0); Calcium 7.9 mg/dL (8.4-10.2); Carbon Dioxide 24 mmol/L (22-30); Chloride 109 mmol/L (98-107); Glucose 89 mg/dL (74-99); Lipase 67 U/L (23-300); Non-African American GFR(CKD) 83 (>60 ml/min/1.73 sqM); Sodium 137 mmol/L (137-145); Total Bilirubin 1.4 mg/dL (0.2-1.3); Total Protein 5.9 g/dL (6.3-8.2)
[2022-10-08 05:01] LABS: AST 34 U/L (14-36); Alkaline Phosphatase 59 U/L (38-126); Potassium 3.7 mmol/L (3.5-5.1)
[2022-10-08 07:11] VITALS: RESP 16
--- NOTE | 2022-10-08 08:16 | CT ---
EXAMINATION TYPE: CT abdomen pelvis w con CT DLP: 507 mGycm, Automated exposure control for dose reduction was used. DATE OF EXAM: 10/08/2022 6:55 AM COMPARISON: CT abdomen pelvis most recent from 02/27/2016 CLINICAL INDICATION:Female, 87 years old with history of abdominal pain; Abdominal pain with nausea a nd vomiting TECHNIQUE: Axial CT of the abdomen and pelvis. Sagittal and coronal reformats were created on a Antenna workstation. Contrast used:100 mL of Isovue 370 with IV Contrast, (none if empty) Oral contrast used: without Oral Contrast (none if empty) FINDINGS: LOWER CHEST: Unremarkable ABDOMEN LIVER: Unremarkable GALLBLADDER AND BILE DUCTS: The gallbladder surgically absent. PANCREAS: Unremarkable. SPLEEN: Unremarkable. ADRENAL GLANDS: Unremarkable. KIDNEYS AND URETERS: No evidence of hydronephrosis or renal calculus. The ureters are unremarkable. PELVIS BLADDER: Unremarkable REPRODUCTIVE: Unremarkable. ABDOMEN & PELVIS STOMACH AND BOWEL: Second portion duodenal diverticulum. Liquid is seen throughout the large bowel. T here is postsurgical changes with anastomotic site in the right lower quadrant. Surgical clips are sc attered throughout the abdomen. PERITONEUM/RETROPERITONEUM: No evidence of pneumoperitoneum or free fluid. VASCULATURE: Mild atherosclerotic calcifications are present throughout the abdominal aorta and its b ranches. No evidence of aortic aneurysm. MUSCULOSKELETAL: No acute osseous abnormalities. Moderate disc degeneration changes are present throu ghout the thoracolumbar spine. LYMPH NODES: No gross evidence for lymphadenopathy. SOFT TISSUE/ABDOMINAL WALL: Unremarkable IMPRESSION: Postsurgical changes of bowel with a nonobstructive bowel gas pattern there is liquid seen throughout the colon compatible with diarrhea. There is mild hyperemia of the bowel mucosa correlate for coliti s/gastroenteritis. No additional acute processes definitively visualized.
[2022-10-08 09:01] LABS: Basophils % (A) 0 %; Eosinophils % (A) 1 %; HCT 32.5 % (34.0-46.0); HGB 11.1 gm/dL (11.4-16.0); Lymphocytes # (A) 0.7 k/uL (1.0-4.8); Lymphocytes % (A) 12 %; MCH 32.1 pg (25.0-35.0); MCHC 34.2 g/dL (31.0-37.0); Mean Platelet Volume 7.9; Monocytes # (A) 0.6 k/uL (0-1.0); Monocytes % (A) 11 %; Neutrophils # (A) 4.1 k/uL (1.3-7.7); Neutrophils % (A) 73 %; Platelet Count 150 k/uL (150-450); RBC 3.46 m/uL (3.80-5.40); RDW 14.7 % (11.5-15.5); WBC 5.6 k/uL (3.8-10.6)
[2022-10-08] MEDS ORDERED: KETOROLAC 15 MG/ML 1 ML VIAL IVP STA (09:39)
[2022-10-08 10:09] VITALS: BP 137/60; PULSE 55; TEMP 98.2
== END 2022-10-08 10:25 | disposition home or self-care (01) ==
LOC: EC 02:54
DX: R10.9 Unspecified abdominal pain (principal); I10 Essential (primary) hypertension; E07.9 Disorder of thyroid, unspecified; M19.90 Unspecified osteoarthritis, unspecified site; Z79.82 Long term (current) use of aspirin; Z79.899 Other long term (current) drug therapy; Z79.890 Hormone replacement therapy; Z88.8 Allergy status to other drugs, medicaments and biological substances; Z88.5 Allergy status to narcotic agent; Z91.040 Latex allergy status
CPT/HCPCS: 80053; 82150; 83605; 83690; 85025; 86140; 74177; 99285; 96374; J1885; Q9967; 36415

== ENCOUNTER → 2022-10-10 | Outpatient (CLI) | payer MEDICARE ==
--- NOTE | 2022-10-10 14:04 | XR ---
EXAMINATION TYPE: XR abdomen 2V DATE OF EXAM: 10/10/2022 COMPARISON: CT abdomen pelvis 10/08/2022 HISTORY: Pain left umbilical area TECHNIQUE: Supine view of the abdomen was obtained with 2 radiographs. FINDINGS: Small bowel demonstrates no evidence for dilatation or air fluid levels. Gas and fecal material is seen in non-distended colon. Post cholecystectomy changes with surgical clips in the right upper quadrant. Multiple postsurgical c lips/sutures identified within the left mid abdomen and right pelvis. Multiple pelvic phleboliths. The lung bases are clear. The osseous structures are intact. IMPRESSION: 1. Overall nonobstructive bowel gas pattern. 2. Postsurgical changes.
== END | disposition home or self-care (01) ==
LOC: RADXRMAIN 13:37
PROVIDERS: ATTEND Internal Medicine
DX: K52.9 Noninfective gastroenteritis and colitis, unspecified (principal)
CPT/HCPCS: 74019

== ENCOUNTER 2022-12-11 12:43 | Emergency (ER) | payer MEDICARE ==
[2022-12-11] MEDS ORDERED: LIDOCAINE 5% PATCH TOPICAL STA (13:16)
[2022-12-11] MEDS ORDERED: DIPH,PERTUS(ACELL)TETVAC-LF 0.5 ML VIAL IM ONE (13:16)
--- NOTE | 2022-12-11 14:16 | XR ---
EXAMINATION TYPE: XR pelvis AP view DATE OF EXAM: 12/11/2022 CLINICAL HISTORY: pain TECHNIQUE: Single view the pelvis is submitted. FINDINGS: No evidence for fracture, dislocation or bony lesion. Joint spaces are well-preserved. S I joints appear symmetric. IMPRESSION: 1. No acute fracture or dislocation seen. ICD 10 NO FRACTURE, INITIAL EVALUATION
--- NOTE | 2022-12-11 14:23 | CT ---
EXAMINATION TYPE: CT brain marco olivares DATE OF EXAM: 12/11/2022 COMPARISON: None HISTORY: Fall CT DLP: 942.[address] of the brain was performed. The ventricles, basal cisterns and sulci overlying the cerebral convexities demonstrate mild enlargem ent. There is no evidence for intracranial hemorrhage or sulcal effacement. There is decreased attenuatio n about the periventricular white matter and deep white matter of both cerebral hemispheres, compatib le with chronic small vessel ischemia. No mass effects are seen. If symptoms persist consider MRI. Osseous calvarium is intact. IMPRESSION: 1. Age related atrophic and chronic small vessel ischemic change without acute intracranial process seen at this time. CT Cervical Spine: Unenhanced CT of the cervical spine was performed with bone and soft tissue window settings submitted . Coronal and sagittal reconstruction is obtained. There is normal alignment and prevertebral soft tissues. No evidence for acute cervical fracture . Scattered degenerative disc disease and spondylosis. Biapical scarring. IMPRESSION: 1. No evidence for acute fracture or subluxation of the cervical spine.
--- NOTE | 2022-12-11 14:41 | CT ---
EXAMINATION TYPE: CT facial bones wo con DATE OF EXAM: 12/11/2022 COMPARISON: 02/21/2016 HISTORY: 87-year-old female with pain after fall. Bruising around the left eye. TECHNIQUE: Contiguous axial scanning of the facial bones without IV contrast. Coronal and sagittal re constructions performed. CT DLP: 942.5 mGycm Automated exposure control for dose reduction was used. FINDINGS: There is segmental angulated bilateral nasal bone fractures. Some associated overlying soft tissue ai r related to the fractures. Similar rightward nasal septal deviation and left-sided annie bullosa. Tiny mucosal retention cyst floor of the left maxillary sinus measuring 5 mm. There is some bruising along the left cheek and prominent preseptal and left infraorbital soft tissue swelling. The mandible and TMJs as well as the pterygoid plates and zygomatic arches appear intact. No acute facial bone fracture is seen. Orbits and globes appear intact. IMPRESSION: 1. SEGMENTAL ANGULATED BILATERAL NASAL BONE FRACTURES WITH ASSOCIATED prominent soft tissue swelling. 2. Prominent bruising along the left cheek and left-sided preseptal and left infraorbital soft tissue swelling. No additional underlying acute facial bone fracture seen.
--- NOTE | 2022-12-11 15:12 | CT ---
EXAMINATION TYPE: CT thoracic spine wo con DATE OF EXAM: 12/11/2022 COMPARISON: 02/27/2016 HISTORY: 87-year-old female with pain after fall TECHNIQUE: Contiguous axial scanning of the thoracic spine without IV contrast. Coronal and sagittal reconstructions performed. CT DLP: 608.6 mGycm Automated exposure control for dose reduction was used. FINDINGS: There is dictation the midthoracic spine from T3 through T6 levels. Moderate degenerative disc diseas e below at C6/C7. Degenerative grade 1 anterolisthesis T1-T2, T2-T3, and T3-T4. Vertebral body heights are preserved. A lignment is maintained. No prevertebral or paravertebral soft tissue abnormality seen. 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 NO VERTEBRAL COMPRESSION COLLAPSE. DEGE NERATIVE GRADE 1 ANTEROLISTHESIS T1-T4 LEVELS. CHEST REPORTED SEPARATELY.
--- NOTE | 2022-12-11 15:17 | CT ---
EXAMINATION TYPE: CT chest wo con DATE OF EXAM: 12/11/2022 COMPARISON: 02/27/2016 HISTORY: Pain post fall CT DLP: 608.6 mGycm. Automated Exposure Control for Dose Reduction was Utilized. TECHNIQUE: CT scan of the thorax is performed without IV contrast. FINDINGS: LUNGS: Bilateral subsegmental atelectasis or scarring. There is no changes of COPD. No evidence of fo tanesha pneumonia. There is no pleural effusion or pneumothorax seen. The tracheobronchial tree is pat ent. There are multiple micronodules in subpleural location which are benign in appearance. MEDIASTINUM: Lack of IV contrast is noted to limit evaluation for mediastinal and especially hilar ad enopathy. There are no definitive greater than 1 cm hilar or mediastinal lymph nodes. Heart size norm al. Tiny pericardial effusion. OTHER: Kyphosis of the spine with diffuse osteopenia. There is multilevel hypertrophic and degenerati ve changes of the spine. Bilateral glenohumeral joint arthropathy. There is a hairline fracture throu gh the posterior margin of the left fifth rib. IMPRESSION: 1. Bilateral areas of scarring or atelectasis with no evidence of consolidation or pulmonary contusio n. 2. Degenerative change of the spine with very mild superior endplate compression fracture T5 of which is chronic and stable dating back to chest CT 02/27/2016 3 Hairline fracture posterior left fifth rib
[2022-12-11] MEDS ORDERED: dexAMETHasone 4 MG TAB PO STA (16:02)
[2022-12-11] MEDS ORDERED: AMOXIC-POT CLAV 875-125MG 1 EACH TAB PO STA (16:02)
--- NOTE | 2022-12-11 16:06 | ED ---
General Adult HPI - General Chief complaint: Fall Stated complaint: Fall, no Thinners Time Seen by Provider: 12/11/22 13:02 Source: patient, EMS, RN notes reviewed, old records reviewed Mode of arrival: EMS Limitations: no limitations - History of Present Illness Initial comments: Patient is an 87-year-old female presents with department after a fall. Was helping clean out an artificial, in her backyard when she fell forward landing on her face. Did not lose consciousness. He is not on blood thinners. Has bruising over the front of her face as well as left rib pain. No other acute complaints at this time. Was ambulatory afterwards. Presents for further evaluation at this time. States she did not faint. Does not believe she lost conscious. [place] normal prior to falling. States she lost her balance. - Related Data Home Medications Medication Instructions Recorded Confirmed Aspirin EC [Ecotrin Low Dose] 81 mg PO DAILY 04/07/15 07/29/22 Metoprolol Succinate [Toprol XL] 50 mg PO BID 04/07/15 07/29/22 Levothyroxine Sodium [Synthroid] 100 mcg PO DAILY 04/09/19 07/29/22 Losartan Potassium [Cozaar] 0.5 tab PO BID 04/09/19 07/29/22 Zolpidem [Ambien] 10 mg PO HS 04/09/19 07/29/22 Sertraline [Zoloft] 50 mg PO DAILY 07/29/22 07/29/22 Previous Rx's Medication Instructions Recorded Amoxic-Pot Clav 875-125Mg 1 tab PO Q12HR 5 Days #10 tab 12/11/22 [Augmentin 875-125] Lidocaine 5% Patch [Lidoderm 5% 1 patch TOPICAL DAILY PRN 14 Days 12/11/22 Patch] #14 patch Sodium Chloride [Saline Mist] 1 spray EA NOSTRIL BID #45 ml 12/11/22 Allergies Allergy/AdvReac Type Severity Reaction Status Date / Time ceftriaxone sodium Allergy Itching Verified 10/08/22 03:16 [From Rocephin] hydromorphone HCl Allergy Dyspnea Verified 10/08/22 03:16 [From Dilaudid] latex Allergy RASH AND Verified 10/08/22 03:16 SWELLING levofloxacin [From Levaquin] Allergy red Verified 10/08/22 03:16 streaks in iv vein morphine Allergy Dyspnea Verified 10/08/22 03:16 codeine AdvReac Rapid Verified 10/08/22 03:16 Heart Rate Review of Systems ROS Statement: Those systems with pertinent positive or pertinent negative responses have been documented in the HPI. Review of Systems: CONST: Denies fever EYES: Denies blurry vision ENT: Denies nasal congestion C/V: Denies Chest pain RESP: Denies shortness of breath GI: Denies abdominal pain : Denies dysuria SKIN: Endorses facial bruising MSK: Endorses facial pain NEURO: Denies headache ROS Other: All systems not noted in ROS Statement are negative. Past Medical History Past Medical History: Cancer, Deep Vein Thrombosis (DVT), Hypertension, Osteoarthritis (OA), Thyroid Disorder Additional Past Medical History / Comment(s): hx bowel obstruction/colon cancer- 1991 with sx and chemotherapy,"short bowel syndrome/chronic diarrhea. dvt lt leg 2012, VARICOSE VEINS, cervical spondylosis with myelopathy, osteoporosis, rosacea, hx fall and fx jaw(not wired), hx Hepatitis, psoriasis. History of Any Multi-Drug Resistant Organisms: MRSA Date of last positivie culture/infection: 2011 MDRO Source:: LT GREAT TOE Past Surgical History: Bowel Resection, Cholecystectomy, Hysterectomy Additional Past Surgical History / Comment(s): rt rotator cuff repair 2 04/2014, colonoscopy, pain clinic procedures, multiple colon resections including colostomy reversal, cataracts Past Anesthesia/Blood Transfusion Reactions: No Reported Reaction Past Psychological History: No Psychological Hx Reported Smoking Status: Never smoker Past Alcohol Use History: None Reported Past Drug Use History: None Reported - Past Family History Brother(s) Son(s) Family Medical History: Deep Vein Thrombosis (DVT) Additional Family Medical History / Comment(s): Patient has 4 sons and one has history of DVTs Daughter(s) Additional Family Medical History / Comment(s): Patient has one daughter that has Crohn's Sister(s) Family Medical History: Cancer Additional Family Medical History / Comment(s): She has 2 sisters and one has had breast cancer with metastatic disease and the second sister with with liver cancer. Father Family Medical History: Cancer Additional Family Medical History / Comment(s): Father at age 90 from inoperable bowel cancer Mother Family Medical History: Cancer Additional Family Medical History / Comment(s): Mother at age 81 from stomach cancer General Exam - General Exam Comments Initial Comments: General: Appears in no acute distress. HEAD: Normal with no signs of head trauma. Patient does have bruising around bilateral eyes. Mild edema. EYES: PERRLA, EOMI, conjunctiva normal, no discharge. Pupils are 3 mm and equal bilaterally. ENT: Hearing grossly intact, normal oropharynx. No nasal septal hematoma. Tenderness palpation over the bilateral nose. RESPIRATORY: Clear breath sounds bilaterally. No wheezes, rales, or rhonchi. C/V: Regular rate and rhythm. S1 and S2 auscultated, no edema, peripheral pulses 2+ and intact throughout ABD: Abd is soft, nontender, nondistended EXT: Normal range of motion, no obvious deformity. Pelvis is stable. Mild mi dline cervical spine tenderness to palpation but nothing significant. SKIN: No rashes or lesions observed on exposed skin. NEURO: Alert and oriented x 4. Cranial nerves II-XII intact. No focal sensory or strength deficits. GCS 15. NIH of 0. Limitations: no limitations Course Vital Signs 12/11/22 12/11/22 12:46 17:09 Temperature 98.7 F 98.8 F Pulse Rate 65 60 Respiratory 18 16 Rate Blood Pressure 174/78 170/82 O2 Sat by Pulse 99 96 Oximetry Medical Decision Making - Medical Decision Making Was pt. sent in by a medical professional or institution (TIM [facility], VISITOR SERVICES [employer]OCIATE, urgent care, hospital, or long-term...) When possible be specific @ -No Did you speak to anyone other than the patient for history (EMS, parent, family, police, friend...)? What history was obtained from this source @ -No Did you review nursing and triage notes (agree or disagree)? Why? @ -I reviewed and agree with nursing and triage notes Were old charts reviewed (outside hosp., previous admission, EMS record, old EKG, old radiological studies, urgent care reports/EKG's, long-term records)? Report findings @ -Old charts reviewed. Differential Diagnosis (chest pain, altered mental status, abdominal pain women, abdominal pain men, vaginal bleeding, weakness, fever, dyspnea, syncope, headache, dizziness, GI bleed, back pain, seizure, CVA, palpatations, mental health, musculoskeletal)? @ -Differential Musculoskeletal Muscular strain, contusion, ligament sprain, fracture, arthritis, septic arthritis, bursitis, cellulitis, muscle spasm, nerve compression, DVT, arterial occlusion, herpes zoster, electrolyte abnormality, tumor.... This is not meant to be in all inclusive list. Also includes intracranial injury. EKG interpreted by me (3pts min.). @ -None done X-rays interpreted by me (1pt min.). @ -Pelvis x-ray negative for any obvious traumatic injury. CT interpreted by me (1pt min.). @ -CT of the chest reveals a posterior left fifth rib fracture but no other obvious injury. CT thoracic spine negative for any obvious fracture. CT brain and C-spine negative for any obvious reticulocyte injuries. CT facial bones does reveal bilateral nasal bone fracture but no other obvious injuries. U/S interpreted by me (1pt. min.). @ -None done What testing was considered but not performed or refused? (CT, X-rays, U/S, labs)? Why? @ -None What meds were considered but not given or refused? Why? @ -Considered pain medications which patient refused at this time. Did you discuss the management of the patient with other professionals (professionals i.e. , PA, VISITOR SERVICES ASSOCIATE, lab, RT, psych nurse, family welfare social work professor, dairy equipment specialist, teacher, financial aids officer, case checker)? Give summary @ -No Was smoking cessation discussed for >3mins.? @ -No Was critical care preformed (if so, how long)? @ -No Were there social determinants of health that impacted care today? How? (Homelessness, low income, unemployed, alcoholism, drug addiction, transportation, low edu. Level, literacy, decrease access to med. care, shelter, rehab)? @ -No Was there de-escalation of care discussed even if they declined (Discuss DNR or withdrawal of care, Hospice)? DNR status @ -No What co-morbidities impacted this encounter? (DM, HTN, Smoking, COPD, CAD, Cancer, CVA, ARF, Chemo, Hep., AIDS, mental health diagnosis, sleep apnea, morbid obesity)? @ -None Was patient admitted / discharged? Hospital course, mention meds given and route, prescriptions, significant lab abnormalities, going to OR and other pertinent info. @ -Based on the patient's presentation and physical exam, concern for injury. We will obtain CT imaging of the head, face, neck as well as chest. Patient declines analgesic medications except for a lidocaine patch over left chest wall. She was in agreement this plan otherwise. Vital signs within acceptable limits. Imaging remarkable for left fifth nondisplaced rib fracture, as well as bilateral nasal bone fracture but no other obvious injuries. Discussed results of patient. She'll be discharged home at this time. Patient was in agreement this plan. Nasal precautions discussed. Patient given a dose of steroids, as well as will be placed on Augmentin empirically for nasal bone fractures. Patient's tetanus was already updated. I will provide her with a prescription for lidocaine patches as well. She will receive an incentive spirometer prior to discharge. Patient was in agreement this plan. I will provide the patient with a prescription for Augmentin, lidocaine patch, saline mist. I instructed the patient to follow up with their PCP in the next 1- 3 days. I provided contact information for follow up with ENT. I explained that the patient should return to the emergency department if they experience any worsening symptoms. Strict return precautions were discussed with the patient. The patient expressed understanding of these instructions. I answered all questions that the patient had. The patient was discharged home in good condition with their prescriptions and follow up information. Undiagnosed new problem with uncertain prognosis? @ -No Drug Therapy requiring intensive monitoring for toxicity (Heparin, Nitro, Insulin, Cardizem)? @ -No Were any procedures done? @ -No Diagnosis/symptom? @ -Fall, nasal bone fractures, rib fracture Acute, or Chronic, or Acute on Chronic? @ -Acute Uncomplicated (without systemic symptoms) or Complicated (systemic symptoms)? @ -Uncomplicated Side effects of treatment? @ -No Exacerbation, Progression, or Severe Exacerbation? @ -No Poses a threat to life or bodily function? How? (Chest pain, [place], [place], pneumonia, PE, COPD, DKA, ARF, appy, cholecystitis, CVA, Diverticulitis, Homicidal, Suicidal, threat to staff... and all critical care pts) @ -No Disposition Clinical Impression: Rib fracture, Fall, Nasal bone fractures Disposition: HOME SELF-CARE Condition: Good Instructions (If sedation given, give patient instructions): How to Use an [place] ntive Spirometer (ED), Nasal Fracture (ED), Fall Prevention for Older Adults (ED) Prescriptions: Amoxic-Pot Clav 875-125Mg [Augmentin 875-125] 1 tab PO Q12HR 5 Days #10 tab Lidocaine 5% Patch [Lidoderm 5% Patch] 1 patch TOPICAL DAILY PRN 14 Days #14 patch PRN Reason: Pain Sodium Chloride [Saline Mist] 1 spray EA NOSTRIL BID #45 ml Is patient prescribed a controlled substance at d/c from ED?: No Referrals: Damir Beltran MD [Primary Care Provider] - 1-2 days Leobardo Aldridge MD [STAFF PHYSICIAN] - 1-2 days Time of Disposition: 15:55
[2022-12-11 17:12] VITALS: BP 170/82; PULSE 60; RESP 16; TEMP 98.8
== END 2022-12-11 17:11 | disposition home or self-care (01) ==
LOC: EC 12:43
DX: S22.32XA Fracture of one rib, left side, initial encounter for closed fracture (principal); S02.2XXA Fracture of nasal bones, initial encounter for closed fracture; I10 Essential (primary) hypertension; M19.90 Unspecified osteoarthritis, unspecified site; E07.9 Disorder of thyroid, unspecified; M81.0 Age-related osteoporosis without current pathological fracture; Z86.718 Personal history of other venous thrombosis and embolism; Z91.040 Latex allergy status; Z88.5 Allergy status to narcotic agent; Z88.1 Allergy status to other antibiotic agents; Z88.8 Allergy status to other drugs, medicaments and biological substances; Z79.890 Hormone replacement therapy; Z79.899 Other long term (current) drug therapy; Z23 Encounter for immunization; W18.30XA Fall on same level, unspecified, initial encounter; Y92.007 Garden or yard of unspecified non-institutional (private) residence as the place of occurrence of the external cause
CPT/HCPCS: 72170; 72128; 72125; 70486; 70450; 71250; 90715; 99285; 90471; J8540